=== PATIENT | male | born 1945 | race Caucasian/White ===

== ENCOUNTER 2016-09-09 13:50 | Inpatient (IN) ==
[2016-09-09] MEDS ORDERED: 0.9 % Sodium Chloride 1,000 ML IVC ONE (14:17)
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
[2016-09-09 14:48] LABS: Basophils # 0.1 K/mcL (0.0-0.2); Basophils % 0.5 %; Immature Granulocytes % 0.3 % (0-4); Lymphocytes # 1.4 K/mcL (0.6-4.6); Lymphocytes % 12.4 %; Mean Corpuscular HGB Conc 30.7 g/dL (31.6-35.5); Mean Corpuscular Hemoglobin 30.6 pg (28.0-33.3); Mean Corpuscular Volume 99.6 fL (83.0-100.0); Mean Platelet Volume 11.4 fL (9.4-12.4); Monocytes # 0.6 K/mcL (0.0-1.3); Monocytes % 5.8 %; Platelet Count 209 K/mcL (140-400); Red Blood Count 5.56 M/mcL (4.19-5.50); Red Cell Distribution Width 12.7 % (11.5-14.5)
[2016-09-09 14:52] LABS: Hematocrit 55.4 % (37.5-50.1)
[2016-09-09 14:58] LABS: BUN/Creatinine Ratio 32 (6-26); Blood Urea Nitrogen 86 mg/dL (8-26); Calcium 10.4 mg/dL (8.6-10.8); Carbon Dioxide 27 mEq/L (19-29); Chloride 117 mEq/L (98-109); Osmolality,Calculated 394 (280-300); eGFR For African Americans 28 (> 60); eGFR For Non-African Americans 23 (> 60)
[2016-09-09 15:08] LABS: Sodium 164 mEq/L (136-145)
[2016-09-09 15:09] LABS: Glucose 630 mg/dL (70-99)
[2016-09-09 15:32] LABS: Beta-Hydroxybutyric Acid > 2.00 mmol/L (0.02-0.27)
[2016-09-09 16:17] LABS: ABG Base Excess 0.4 mEq/L (-2.0 to 3.0); ABG Glucose 479 mg/dL (60-95); ABG HCO3 27.8 mEQ/L (21-27); ABG Hematocrit 53 % (35-51); ABG Ionized Calcium 1.23 mmol/L (1.15-1.35); ABG Oxygen Saturation 98 % (95-98); ABG PCO2 54 mmHg (35-45); ABG PH 7.32 pH Units (7.32-7.45); ABG PO2 122 mmHg (85-104); ABG TCO2 29.5 mEq/L (20-26)
[2016-09-09 16:23] LABS: Blood Gas Liter Flow 30 L/MIN
[2016-09-09] MEDS ORDERED: Aspirin 325 MG TABLET PO ONE (16:30)
[2016-09-09] MEDS ORDERED: *HR* Dextrose 50 % in Water (Syg) 50 ML SYRINGE IVP PRN ×2 (16:46→23:41)
[2016-09-09] MEDS ORDERED: Insulin Human Regular 100 UNIT in 0.9 % Sodium Chloride 100 ML IVC SCH (17:00)
[2016-09-09] MEDS ORDERED: Naloxone 0.4 MG/ML INJ IVP PRN (20:58)
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
[2016-09-09] MEDS ORDERED: Dextrose Gel 15 GM PO PRN ×2 (21:28)
[2016-09-09] MEDS ORDERED: D5% in Water 1,000 ML IVC PRN (21:28)
[2016-09-09] MEDS ORDERED: Insulin LISPRO 300 UNITS/3 ML VIAL SQ ONE (21:35)
[2016-09-09 21:43] LABS: VBG HCO3 34.9 mEq/L (21-27); VBG PH 7.38 pH Units (7.32-7.42)
[2016-09-09 21:56] LABS: Alanine Aminotransferase 10 Units/L (0-55); Albumin 3.9 g/dL (3.5-5.0); Albumin/Globulin Ratio 0.9 (1.1-2.2); Alkaline Phosphatase 112 Units/L (38-126); Aspartate Amino Transferase 10 Units/L (5-34); Bilirubin,Direct 0.2 mg/dL (0.0-0.5); Bilirubin,Indirect 0.3 mg/dL (0.0-1.2); Bilirubin,Total 0.5 mg/dL (0.2-1.2); Calcium 10.5 mg/dL (8.6-10.8); Globulin 4.4 g/dL (2.4-3.5); Magnesium 2.8 mg/dL (1.6-2.6); Phosphorous 2.1 mg/dL (2.3-4.7); Total Protein 8.3 g/dL (6.0-8.3)
[2016-09-09 21:57] LABS: Chol/HDL Ratio 10.1 (0-4.9); Ethanol < 10 mg/dL (0-10)
[2016-09-09 22:05] LABS: Potassium 3.2 mEq/L (3.5-4.5)
[2016-09-09 22:18] LABS: Thyroid Stimulating Hormone 0.187 mcIU/mL (0.350-4.840)
[2016-09-09] MEDS: Insulin LISPRO 300 UNITS/3 ML VIAL SQ PRN ×2 (22:26→23:27)
[2016-09-09 23:32] LABS: Triiodothyronine (T3) Free 1.65 pg/mL (1.71-3.71); Triiodothyronine (T3) Total 0.51 ng/mL (0.58-1.59)
[2016-09-09 23:32] LABS: Bilirubin,Urine Moderate (Negative); Blood,Urine Negative (Negative); Clarity,Urine Cloudy (Clear); Color,Urine Yellow (Yellow); Glucose,Urine (UA) >=1000 mg/dL (Normal); Ketones,Urine 15 mg/dL (Negative); Leukocyte Esterase,Urine Negative (Negative); Nitrite,Urine Negative (Negative); Protein,Urine 30 mg/dL (Neg-Trace); Specific Gravity,Urine > 1.030 (1.010-1.025); Urobilinogen,Urine Normal (Normal)
[2016-09-09 23:39] LABS: Bacteria,Urine None Seen per hpf (None-Few); RBC,Urine 0-3 per hpf (0-3); Squamous Epithelial Cell,Urine Many per lpf (None-Few); WBC,Urine 0-3 per hpf (0-3)
[2016-09-09] MEDS ORDERED: Magnesium Sulfate 2 GM in D5% in Water 100 ML IVPB PRN (23:41)
[2016-09-09] MEDS ORDERED: Acetaminophen 325 MG TABLET PO PRN (23:41)
[2016-09-09] MEDS ORDERED: Potassium Phosphate 44 MEQ in 0.9 % Sodium Chloride 250 ML IVPB PRN (23:41)
[2016-09-09] MEDS ORDERED: Insulin LISPRO 300 UNITS/3 ML VIAL SQ PRN (23:41)
[2016-09-09] MEDS ORDERED: *HR* Morphine 2 MG/ML SYRINGE IVP PRN (23:41)
[2016-09-09] MEDS ORDERED: *HR* OxyCODONE Immed Rel 5 MG TABLET PO PRN (23:41)
[2016-09-09] MEDS ORDERED: Calcium Gluconate 1,000 MG in D5% in Water 100 ML IVPB PRN (23:41)
[2016-09-09] MEDS ORDERED: Sodium Phosphate 30 MMOL in D5% in Water 100 ML IVPB PRN (23:41)
[2016-09-09 23:43] LABS: Granular Casts,Urine Few per lpf (None Seen)
[2016-09-09 23:51] LABS: Amphetamine Screen,Urine Negative ng/mL (Cutoff=1000); Barbiturate Screen,Urine Negative ng/mL (Cutoff=200); Benzodiazepines Screen,Urine Negative ng/mL (Cutoff=200); Cannabinoid Screen,Urine Negative ng/mL (Cutoff = 50); Cocaine Screen,Urine Negative ng/mL (Cutoff= 300); Opiate Screen,Urine Negative ng/mL (Cutoff=300); Phencyclidine Screen,Urine Negative ng/mL (Cutoff=25)
[2016-09-10 01:08] LABS: Basophils # 0.1 K/mcL (0.0-0.2); Basophils % 0.4 %; Eosinophils % 0.3 %; Hematocrit 51.9 % (37.5-50.1); Hemoglobin 16.6 g/dL (12.9-16.9); Immature Granulocytes % 0.4 % (0-4); Lymphocytes # 2.1 K/mcL (0.6-4.6); Mean Corpuscular Hemoglobin 31.4 pg (28.0-33.3); Mean Corpuscular Volume 98.1 fL (83.0-100.0); Mean Platelet Volume 11.1 fL (9.4-12.4); Monocytes # 0.9 K/mcL (0.0-1.3); Monocytes % 6.8 %; Neutrophils # 10.1 K/mcL (1.6-8.9); Platelet Count 202 K/mcL (140-400); Red Blood Count 5.29 M/mcL (4.19-5.50); Segmented Neutrophils % 76.1 %
[2016-09-10 01:21] LABS: Calcium 10.3 mg/dL (8.6-10.8); Potassium 3.7 mEq/L (3.5-4.5)
[2016-09-10] MEDS ORDERED: D5% in 0.45% NACL 1,000 ML IVC SCH ×2 (02:30→11:11)
[2016-09-10] MEDS ORDERED: Ipratropium/Albuterol Neb 3 ML IH PRN (02:40)
[2016-09-10 03:45] LABS: Protein/Creatinine Ratio,Urine 0.21 mg/mg (0-0.20)
[2016-09-10 04:00] LABS: Basophils % 0.2 %; Hematocrit 50.3 % (37.5-50.1); Hemoglobin 15.8 g/dL (12.9-16.9); Immature Granulocytes % 0.8 % (0-4); Lymphocytes # 1.9 K/mcL (0.6-4.6); Mean Corpuscular HGB Conc 31.4 g/dL (31.6-35.5); Mean Corpuscular Hemoglobin 30.8 pg (28.0-33.3); Mean Corpuscular Volume 98.1 fL (83.0-100.0); Mean Platelet Volume 11.2 fL (9.4-12.4); Monocytes # 0.9 K/mcL (0.0-1.3); Monocytes % 7.6 %; Neutrophils # 9.1 K/mcL (1.6-8.9); Platelet Count 176 K/mcL (140-400); Red Blood Count 5.13 M/mcL (4.19-5.50); Red Cell Distribution Width 12.8 % (11.5-14.5); Segmented Neutrophils % 75.4 %
[2016-09-10 04:04] LABS: VBG HCO3 34.1 mEq/L (21-27); VBG PH 7.4 pH Units (7.32-7.42)
[2016-09-10 04:06] LABS: INR 1.1; Prothrombin Time 12.1 Seconds (9.4-12.1)
[2016-09-10 04:09] LABS: Activated Partial Thrombo Time 24.7 Seconds (26.0-36.0)
[2016-09-10 04:14] LABS: Magnesium 2.7 mg/dL (1.6-2.6); Phosphorous 2.8 mg/dL (2.3-4.7)
[2016-09-10 04:16] LABS: Albumin 3.5 g/dL (3.5-5.0); Bilirubin,Total 0.8 mg/dL (0.2-1.2); Calcium 9.8 mg/dL (8.6-10.8); Calcium 9.9 mg/dL (8.6-10.8); Chol/HDL Ratio 9.1 (0-4.9); Globulin 3.6 g/dL (2.4-3.5); Potassium 3.9 mEq/L (3.5-4.5); Total Protein 7.1 g/dL (6.0-8.3)
[2016-09-10] MEDS: *HR* Heparin 5,000 UNIT/ML VIAL SQ SCH ×2 (05:22→17:37)
--- NOTE | 2016-09-10 06:45 | Electrocardiograph Report ---
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
[2016-09-10] MEDS ORDERED: Insulin LISPRO 300 UNITS/3 ML VIAL SQ SCH ×3 (07:30→21:00)
[2016-09-10 09:17] LABS: VBG HCO3 27.9 mEq/L (21-27); VBG PH 7.4 pH Units (7.32-7.42)
[2016-09-10] MEDS: D5% in Water 1,000 ML IVC SCH ×2 (09:20→20:18)
--- NOTE | 2016-09-10 09:26 | Pulmonology Consult Note ---
<ValenteTim W - Last Filed: 09/10/16 15:12> Date of Encounter: 09/10/16 Medications and Allergies Unable To Obtain [Unable to Obtain] 09/09/16 [History] Allergies No Known Allergies Allergy (Verified 09/09/16 13:56) All Systems: A 10-system review of systems was performed and is negative for pertinent findings except as documented above in the HPI. Physical Examination Vital Signs: Vital Signs, Last 4 Hours Temp Pulse Resp BP Pulse Ox 09/10/16 13:00 98 10 126/85 09/10/16 12:18 100 09/10/16 12:16 99 12 153/92 94 09/10/16 11:45 98.5 F 09/10/16 11:23 96 12 143/93 91 Results - Laboratory Findings CBC and BMP: 09/10/16 03:46 09/10/16 13:06 ABG ABG pH 7.32 pH Units (7.32-7.45) 09/09/16 15:58 ABG pCO2 54 mmHg (35-45) H 09/09/16 15:58 ABG pO2 122 mmHg (85-104) H 09/09/16 15:58 ABG O2 Saturation 98 % (95-98) 09/09/16 15:58 PT/INR, D-dimer PT 12.1 Seconds (9.4-12.1) 09/10/16 03:46 Abnormal lab findings: Abnormal lab results WBC 12.0 K/mcL (4.3-11.1) H 09/10/16 03:46 Hct 50.3 % (37.5-50.1) H 09/10/16 03:46 MCHC 31.4 g/dL (31.6-35.5) L 09/10/16 03:46 Neutrophils # 9.1 K/mcL (1.6-8.9) H 09/10/16 03:46 ESR 44 mm/hr (0-10) H 09/10/16 03:46 APTT 24.7 Seconds (26.0-36.0) L 09/10/16 03:46 ABG pCO2 54 mmHg (35-45) H 09/09/16 15:58 ABG pO2 122 mmHg (85-104) H 09/09/16 15:58 ABG HCO3 27.8 mEQ/L (21-27) H 09/09/16 15:58 ABG Total CO2 29.5 mEq/L (20-26) H 09/09/16 15:58 ABG Hematocrit 53 % (35-51) H 09/09/16 15:58 VBG pH 7.48 pH Units (7.32-7.42) H 09/10/16 15:00 VBG pCO2 40 mmHg (41-51) L 09/10/16 15:00 VBG pO2 198 mmHg (25-40) H 09/10/16 15:00 VBG HCO3 29.8 mEq/L (21-27) H 09/10/16 15:00 Sodium 162 mEq/L (135-148) H* 09/09/16 15:58 Glucose 479 mg/dL (60-95) H 09/09/16 15:58 Sodium 158 mEq/L (136-145) H 09/10/16 13:06 Chloride 122 mEq/L (98-109) H 09/10/16 13:06 BUN 68 mg/dL (8-26) H 09/10/16 13:06 Creatinine 1.98 mg/dL (0.72-1.25) H 09/10/16 13:06 Est GFR ( Amer) 41 (> 60) L 09/10/16 13:06 Est GFR (Non-Af Amer) 34 (> 60) L 09/10/16 13:06 BUN/Creatinine Ratio 34 (6-26) H 09/10/16 13:06 Glucose 368 mg/dL (70-99) H 09/10/16 13:06 POC Glucose 378 (58-89) H 09/10/16 12:25 Hemoglobin A1c 8.0 % (-5.6) H 09/09/16 21:29 Serum Osmolality 374 mOsm/kg (280-300) H 09/10/16 03:46 Calculated Osmolality 361 (280-300) H 09/10/16 13:06 Troponin I 0.08 ng/mL (0-0.03) H* 09/10/16 08:55 C-Reactive Protein 35 mg/L (Less than 5) H 09/10/16 03:46 Globulin 3.6 g/dL (2.4-3.5) H 09/10/16 03:46 Albumin/Globulin Ratio 1.0 (1.1-2.2) L 09/10/16 03:46 Triglycerides 212 mg/dL (< 150) H 09/10/16 03:46 Cholesterol 255 mg/dL (< 200) H 09/10/16 03:46 LDL Cholesterol, Calc 185 mg/dL (0-99) H 09/10/16 03:46 VLDL Cholesterol, Calc 42 mg/dL (< 31) H 09/10/16 03:46 HDL Cholesterol 28 mg/dL (40-59) L 09/10/16 03:46 Cholesterol/HDL Ratio 9.1 (0-4.9) H 09/10/16 03:46 Beta-Hydroxybutyric Acd > 2.00 mmol/L (0.02-0.27) H 09/09/16 14:39 TSH 0.253 mcIU/mL (0.350-4.840) L 09/10/16 00:53 Free T3 1.65 pg/mL (1.71-3.71) L 09/09/16 21:29 Total T3 0.51 ng/mL (0.58-1.59) L 09/09/16 21:29 Urine Clarity Cloudy (Clear) A 09/09/16 23:15 Ur Specific [place] > 1.030 (1.010-1.025) H 09/09/16 23:15 Urine Protein 30 mg/dL (Neg-Trace) H 09/09/16 23:15 Urine Glucose (UA) >=1000 mg/dL (Normal) H 09/09/16 23:15 Urine Ketones 15 mg/dL (Negative) H 09/09/16 23:15 Urine Bilirubin Moderate (Negative) H 09/09/16 23:15 Ur Squamous Epith Cells Many per lpf (None-Few) H 09/09/16 23:15 Granular Casts Few per lpf (None Seen) H 09/09/16 23:15 Microalb/Creat Ratio 57 (0-30) H 09/10/16 03:29 Protein/Creatinin Ratio 0.21 mg/mg (0-0.20) H 09/10/16 03:29 Urine Total Protein 35 mg/dL (1-14) H 09/10/16 03:29 - Clinical Findings Intake & Output: Intake & Output 09/09/16 09/10/16 09/10/16 23:59 07:59 15:59 Intake Total 20.8 / 1020.8 654 / 654 120 / 120 Output Total 200 / 200 400 / 400 Balance 0.8 / 1000.8 454 / 454 -280 / -280 Weight 59.602 kg 65.119 kg Consult Discharge Plan - Plan Referrals: NO,PCP [Primary Care Provider] - - Attending Attestation I examined this patient and my medical decision-making was reviewed with the HUMANITIES TEACHER/PA/Advanced Practice Nurse/Resident Physician. I agree with the documented findings, disposition and treatment plan as described except to the extent set forth below. Impression: 1. HONK 2. Hypernatremia 3. AMS. 4. Troponin Elevation Plan: 1. Insulin drip turned off hyperglycemia has corrected patient has received intravascular volume resuscitation urine output remains appropriate 2. Stop crystalloid infusion switch to D5W at 50 mL an hour check sodium every 4 hours goal correction approx 10mEQ in 24 hours. Encourage by mouth intake of free water. 3. s/t 1 & 2 slowly improving today able to follow commands and take diet 4. Secondary to acute stress does have regional wall motion abnormalities but no reduction in ejection fraction we will consult cardiology nonurgent basis for further evaluation troponin has peaked at 0.10 and now trending down and denies any chest pain and remains hemodynamically stable Stable for transfer from ICU to SDU for ongoing care. <AlysonHari Peacock - Last Filed: 09/10/16 16:20> Date of Encounter: 09/10/16 Time of Encounter: 08:40 Assessment and Plan (1) Hypernatremia Current Visit: Yes Status: Acute 164>166>166>166>166>162 The patient is not currently complaining of any symptoms. Will continue to follow and monitor closely. Nephrology consulted. (2) URIEL (acute kidney injury) Current Visit: Yes Status: Acute Unknown baseline function. Creatinine improving. Nephrology consulted. (3) Altered mental status Current Visit: Yes Status: Acute Patient has a history of dementia. Unknown what his baseline is. Per nurse report he was able to answer that he was at a medical center. Will continue to follow. CT of the head was negative for acute abnormality. Qualifiers: Altered mental status type: unspecified Qualified Code(s): R41.82 - Altered mental status, unspecified (4) Elevated troponin Current Visit: Yes Status: Acute 0.06> 0.07> 0.10> 0.08 trending down. Demand ischemia with dehydration and URIEL vs. CKD. Will continue to follow. Echocardiogram ordered. (5) Diabetes Current Visit: Yes Status: Chronic Hyperglycemia. BS this mornings were 110>270>367 ADA diet. Correction schedule has been changed to high dose correction SSI. D5 in half normal saline rate changed from 150mls/hr to 50mls/hr. Qualifiers: Diabetes mellitus type: type 2 Diabetes mellitus complication status: with unspecified complications Diabetes mellitus intermediate insulin use: unspecified joint terminal attack controller insulin use status Qualified Code(s): E11.8 - Type 2 diabetes mellitus with unspecified complications (6) COPD (chronic obstructive pulmonary disease) Current Visit: Yes Status: Chronic Not in acute exacerbation. CTA demonstrated emphysema without acute abnormalities. Currently saturating in 90s on room air. Qualifiers: COPD type: emphysema Emphysema type: centrilobular Qualified Code(s): J43.2 - Centrilobular emphysema (7) DVT prophylaxis Current Visit: Yes Status: Acute Heparin SQ The patient is on a diet and has no need for GI prophylaxis at this time. History of Present Illness Consult date: 09/09/16 Requesting physician: Ashok Washburn Reason for consult: other (severe hypernatremia and hyperglycemia, needs critical care management) Chief complaint: AMS History of present illness: This is a 71 year old male with uncertain medical history. He is a poor historian with underlying dementia and he has no family or friends present with him to clarify questions. He is able to state he is a diabetic, and it is assumed that he has CAD with previous NC due to pacemaker being present and median sternotomy scar present. His baseline mental function is unknown. He is able to state his whole name. When he is asked if he knows where he is he will answer "yes" but will not answer with a specific location. He does not know the date either. He states that he is not in any pain and currently feels fine. The patient is currently staying in a skilled nursing house. The patient initially had Na of 164 with glucose of 630 and Cr of 2.72. He was started on an insulin drip and transferred to the ICU. Currently his glucose is 110 and Cr is 2.01, but his Na remains elevated at 166. He continues to be on D5 1/2 normal saline at 150mls/hr. He was transitioned to a diabetic diet with low dose correction scale insulin. Past Med Surg Social Fam HX - Past Medical History Medical history: arthritis, coronary artery disease, dementia, diabetes, myocardial infarction, other Psychiatric history: other - Past Surgical History Surgical History: coronary bypass (CABG), AICD, pacemaker - Social History Smoking Status: Unknown if ever smoked Alcohol use: unknown Drug use: unknown ROS unobtainable: due to mental status All Systems: A 10-system review of systems was performed and is negative for pertinent findings except as documented above in the HPI. Physical Examination Vital Signs: Vital Signs, Last 4 Hours Temp Pulse Resp BP Pulse Ox 09/10/16 08:32 100 9 125/85 94 09/10/16 08:23 101 09/10/16 08:02 98.2 F 09/10/16 07:30 97 138/84 09/10/16 06:13 101 18 144/98 91 09/10/16 05:46 98 16 123/79 92 General appearance: no acute distress, alert, other (Only oriented to person) Eyes: nonicteric ENT: oropharynx moist Neck: supple Effort: normal Inspection: normal Auscultation: bilateral: diminished breath sounds Cardiovascular: regular rate and rhythm, murmur noted (+3 systolic murmur), other (Pacemaker in place with median sternotomy scar over the center of the chest) Gastrointestinal: normoactive bowel sounds, soft, non-tender, non-distended Integumentary: normal Extremities: no cyanosis Musculoskeletal: no deformities non-focal exam, other (delayed answering of questions, but appropriate) mood appropriate Results - Laboratory Findings CBC and BMP: 09/10/16 03:46 09/10/16 13:06 ABG ABG pH 7.32 pH Units (7.32-7.45) 09/09/16 15:58 ABG pCO2 54 mmHg (35-45) H 09/09/16 15:58 ABG pO2 122 mmHg (85-104) H 09/09/16 15:58 ABG O2 Saturation 98 % (95-98) 09/09/16 15:58 PT/INR, D-dimer PT 12.1 Seconds (9.4-12.1) 09/10/16 03:46 Abnormal lab findings: Abnormal lab results WBC 12.0 K/mcL (4.3-11.1) H 09/10/16 03:46 Hct 50.3 % (37.5-50.1) H 09/10/16 03:46 MCHC 31.4 g/dL (31.6-35.5) L 09/10/16 03:46 Neutrophils # 9.1 K/mcL (1.6-8.9) H 09/10/16 03:46 ESR 44 mm/hr (0-10) H 09/10/16 03:46 APTT 24.7 Seconds (26.0-36.0) L 09/10/16 03:46 ABG pCO2 54 mmHg (35-45) H 09/09/16 15:58 ABG pO2 122 mmHg (85-104) H 09/09/16 15:58 ABG HCO3 27.8 mEQ/L (21-27) H 09/09/16 15:58 ABG Total CO2 29.5 mEq/L (20-26) H 09/09/16 15:58 ABG Hematocrit 53 % (35-51) H 09/09/16 15:58 VBG pCO2 55 mmHg (41-51) H 09/10/16 03:46 VBG pO2 78 mmHg (25-40) H 09/10/16 03:46 VBG HCO3 34.1 mEq/L (21-27) H 09/10/16 03:46 Sodium 162 mEq/L (135-148) H* 09/09/16 15:58 Glucose 479 mg/dL (60-95) H 09/09/16 15:58 Sodium 166 mEq/L (136-145) H* 09/10/16 03:46 Chloride 126 mEq/L (98-109) H 09/10/16 03:46 BUN 78 mg/dL (8-26) H 09/10/16 03:46 Creatinine 1.95 mg/dL (0.72-1.25) H 09/10/16 03:46 Est GFR ( Amer) 41 (> 60) L 09/10/16 03:46 Est GFR (Non-Af Amer) 34 (> 60) L 09/10/16 03:46 BUN/Creatinine Ratio 40 (6-26) H 09/10/16 03:46 Glucose 108 mg/dL (70-99) H 09/10/16 03:46 POC Glucose 270 (58-89) H 09/10/16 07:24 Hemoglobin A1c 8.0 % (-5.6) H 09/09/16 21:29 Serum Osmolality 374 mOsm/kg (280-300) H 09/10/16 03:46 Calculated Osmolality 366 (280-300) H 09/10/16 03:46 Magnesium 2.7 mg/dL (1.6-2.6) H 09/10/16 03:46 Troponin I 0.10 ng/mL (0-0.03) H* 09/10/16 03:46 C-Reactive Protein 35 mg/L (Less than 5) H 09/10/16 03:46 Globulin 3.6 g/dL (2.4-3.5) H 09/10/16 03:46 Albumin/Globulin Ratio 1.0 (1.1-2.2) L 09/10/16 03:46 Triglycerides 212 mg/dL (< 150) H 09/10/16 03:46 Cholesterol 255 mg/dL (< 200) H 09/10/16 03:46 LDL Cholesterol, Calc 185 mg/dL (0-99) H 09/10/16 03:46 VLDL Cholesterol, Calc 42 mg/dL (< 31) H 09/10/16 03:46 HDL Cholesterol 28 mg/dL (40-59) L 09/10/16 03:46 Cholesterol/HDL Ratio 9.1 (0-4.9) H 09/10/16 03:46 Beta-Hydroxybutyric Acd > 2.00 mmol/L (0.02-0.27) H 09/09/16 14:39 TSH 0.253 mcIU/mL (0.350-4.840) L 09/10/16 00:53 Free T3 1.65 pg/mL (1.71-3.71) L 09/09/16 21:29 Total T3 0.51 ng/mL (0.58-1.59) L 09/09/16 21:29 Urine Clarity Cloudy (Clear) A 09/09/16 23:15 Ur Specific [place] > 1.030 (1.010-1.025) H 09/09/16 23:15 Urine Protein 30 mg/dL (Neg-Trace) H 09/09/16 23:15 Urine Glucose (UA) >=1000 mg/dL (Normal) H 09/09/16 23:15 Urine Ketones 15 mg/dL (Negative) H 09/09/16 23:15 Urine Bilirubin Moderate (Negative) H 09/09/16 23:15 Ur Squamous Epith Cells Many per lpf (None-Few) H 09/09/16 23:15 Granular Casts Few per lpf (None Seen) H 09/09/16 23:15 Microalb/Creat Ratio 57 (0-30) H 09/10/16 03:29 Protein/Creatinin Ratio 0.21 mg/mg (0-0.20) H 09/10/16 03:29 Urine Total Protein 35 mg/dL (1-14) H 09/10/16 03:29 - Clinical Findings Intake & Output: Intake & Output 09/09/16 09/10/16 09/10/16 23:59 07:59 15:59 Intake Total 20.8 / 1020.8 654 / 654 Output Total 20 / 20 200 / 200 200 / 200 Balance 0.8 / 1000.8 454 / 454 -200 / -200 Weight 59.602 kg 65.119 kg
[2016-09-10 09:27] LABS: Magnesium 2.3 mg/dL (1.6-2.6); Phosphorous 3.6 mg/dL (2.3-4.7); Potassium 4.3 mEq/L (3.5-4.5)
--- NOTE | 2016-09-10 09:37 | ECHO - Doppler Report ---
Echocardiogram Name: Warren Carver Date of Study: 09/10/2016 Date: 1945 Ht: 72.0 in Medical Record#: [id number] Age: 71 Wt: 143.0 lb Gender: Male BSA: 1.85 Order #: [id number] Location: [facility] Room #: ICU12 Reading Physician: Rashel Gamez MD, [facility] [employer]: Dilshad Sue RN Ordering Physician: Ashok Washburn DO Primary Physician: None Indications: Elevated Troponin Impressions: LVEF 55-60%. There are regional wall motion abnormalities, see diagram below. Mild concentric left ventricular hypertrophy. Mild left ventricular diastolic dysfunction. Normal right ventricular size and function. A device lead was visualized in the right atrium and right ventricle. No significant valvular dysfunction. Unable to estimate RVSP due to lack of TR jet. Left Ventricular Wall Motion: Rest Echo Findings The basal inferior septal and basal inferior lateral martinez were hypokinetic. The basal inferior wall was akinetic. All other wall segments showed normal motion. Findings: Study Quality * Suboptimal echo windows. ECG Findings * Normal sinus rhythm. Left Ventricle * LVEF 55-60%. There are regional wall motion abnormalities, see diagram below. * Mild concentric left ventricular hypertrophy. * Mild left ventricular diastolic dysfunction. Right Ventricle * Normal right ventricular size and function. Device lead * A device lead was visualized in the right atrium and right ventricle. Left Atrium * Normal left atrial size. Right Atrium * Normal right atrial size. Aorta * Normally sized aortic root. Pericardium * There is no pericardial effusion present. IVC * The IVC is not well evaluated. Aortic Valve * Aortic valve not well visualized. Appears mildly sclerotic. * No aortic stenosis. * No aortic regurgitation. Mitral Valve * Normal mitral valve structure. * No mitral stenosis. * Trace mitral regurgitation. Tricuspid Valve * Tricuspid valve not well visualized. * No tricuspid stenosis. * Trace tricuspid regurgitation. * Unable to estimate RVSP due to lack of TR jet. Pulmonic Valve * Pulmonic valve not well visualized. * No pulmonic stenosis. * No pulmonic regurgitation. History History of CAD/PTCA Coronary Artery Bypass Graft Measurements: BP: 144/ 98 2D Normal Values RVIDd: 3.70 cm IVSd: 1.20 cm 0.6 - 1.0 cm LVIDd: 3.90 cm 3.7 - 5.6 cm LVPWd: 1.20 cm 0.6 - 1.1 cm LVIDs: 3.00 cm 1.5 - 3.6 cm AO: 3.60 cm < 4.0 cm %FS: 23.10 cm >25 % LA volume: 45 Mitral Valve Peak E:.59 m/sec Peak A:.89 m/sec E/A Ratio:0.7 Updated by Rashel Gamez MD, [facility] on 09/10/2016 9:30:25 AM electronically signed on 09/10/2016 9:30:49 AM with status of Final Wall Motion Travis: 1=Normal, 2=Hypokinesis, 3=Akinesis, 4=Dyskinesis, 5=Aneurysmal, 6=Hyperkinetic, X=Not Visualized (Blank)=Missing
--- NOTE | 2016-09-10 10:34 | Nephrology Consult Note ---
Date of Encounter: 09/10/16 Time of Encounter: 10:15 Assessment and Plan (1) Hypernatremia Current Visit: Yes Status: Acute Patient presents to the hospital with altered mental status sodium level of 164. Repeat sodiums were 166. Patient hypernatremia likely caused by dehydration from HHS and dehydration. There has been slow improvement patient hypernatremia seen with continued fluids with D5 and half-normal saline. Current sodium is 158. Patient's serum osmotically and urine osmolality are both elevated, indicating proper response by patient kidneys to dehydration and unlikely SIADH. Patient free water deficit of 5.5 to 6 L. Recommend continuous IV fluid repletion with goal improvement in patient's sodium no more than 10 per day Recommend regular checks of patient's sodium, every 6 hours until sodium in less critical range Agree with reducing rate of fluid repletion (2) HHNC (hyperglycemic hyperosmolar nonketotic coma) Current Visit: Yes Status: Acute Patient presented with elevated blood glucose, altered mental status, and elevated serum of quality without acidosis. Patient was initially placed on insulin drip and is receiving fluids for his dehydration. He was transitioned off insulin drip this morning, but has continued have elevated blood sugars due largely to continue fluid repletion with D5 in half-normal saline. Although patient alert is alert and oriented 1, with history of dementia is unclear what his baseline is. Continue treatment for hypernatremia and dehydration as above Continue close monitoring of patient blood sugar Continue management per primary team (3) Renal insufficiency Current Visit: Yes Status: Acute Nonoliguric acute kidney injury with unknown baseline renal function, URIEL or URIEL on CKD?. Patient presents with elevated serum creatinine of 2.72 with estimated GFR of 23. There are no records available as the patient baseline renal function. He appears to be dehydrated and FeNa of 0.2% suggests prerenal cause of his acute kidney injury. Improvement in the patient renal function seen continued fluid repletion. Continue fluid repletion as above We will trend renal function with every 6 hours chemistry Avoid nephrotoxins if possible Expect improvement in patient renal function as improvement of fluid status seen (4) Dehydration Current Visit: Yes Status: Acute Patient unreliable historian, likely has some degree of decreased by mouth prior to/contributory to current status. Elevated serum osmolality, elevated urine osmolality, hypernatremia, hyper glycemia are all evidence of/ contributing factors to patient. Continue continue IV fluid repletion as above (5) Acute encephalopathy Current Visit: Yes Status: Acute Patient encephalopathy likely due to current dehydration, decreased intravascular volume, hypernatremia, hyperosmolar state, and hyperglycemia. Recommendations above Continue management per primary team History of Present Illness - Reason for Consult Consult date: 09/10/16 Acute Kidney Injury, hypernatremia Requesting physician: Ashok Washburn - Chief Complaint Altered mental status - History of Present Illness Mr. Carver is a 71 year old gentleman with past medical history of CAD (with prior CABG), prior pacemaker placed (for unknown reason), diabetes, and dementia (unknown baseline) was brought to [facility] because of altered mental status at his place of residence. Is unclear at the moment what preceded his current encephalopathy, there is no prior documentation to patient medical history. He does live at a long term, being on parole currently, and presumably he was found to be altered and EMS was called. At presentation he was found to have several metabolic derangements, including: Hypernatremia, hyperglycemia, elevated serum osmolality, beta hydroxybutyrate greater than 2, high urine osmolality, increased urine specific gravity, glucosuria, and FeNa less than 0.2%. All imaging performed including head and chest CT, chest x-ray, and electrocardiogram were negative for acute processes. He has been mildly tachycardic with elevated, but stable, troponin. Past Med Surg Social Fam HX - Past Medical History Medical history: arthritis, coronary artery disease, dementia, diabetes, myocardial infarction, other Psychiatric history: other - Past Surgical History Surgical History: coronary bypass (CABG), AICD, pacemaker - Social History Smoking Status: Unknown if ever smoked Alcohol use: unknown Drug use: unknown Medications and Allergies Unable To Obtain [Unable to Obtain] 09/09/16 [History] Allergies No Known Allergies Allergy (Verified 09/09/16 13:56) Review of Systems ROS unobtainable: due to mental status (Patient alert, but alert and oriented 1 , and though he answers questions appropriately is difficult to say whether these are accurate answers) Constitutional: no anorexia, no chills, no fatigue, no fever(s), no headache(s) , no weakness Nose, mouth and throat: no dry mouth, no sore throat Cardiovascular: no chest pain, no palpitations Respiratory: no cough, no dyspnea Gastrointestinal: no abdominal pain, no change in bowel habits, no constipation , no diarrhea, no nausea, no vomiting Genitourinary Male: no dysuria Neurological: no dizziness Endocrine: no fatigue, no palpitations, no polydipsia, no polyuria Exam - Vital Signs Vital signs: Initial Vital Signs Temp Pulse Resp BP Pulse Ox 98.3 F 110 18 105/69 92 09/09/16 13:51 09/09/16 13:51 09/09/16 13:51 09/09/16 13:51 09/09/16 13:51 Vital Signs - Last 8 Hours Temp Pulse Resp BP Pulse Ox 09/10/16 09:27 99 11 130/82 91 09/10/16 08:32 100 9 125/85 94 09/10/16 08:23 101 09/10/16 08:02 98.2 F 09/10/16 07:30 97 138/84 09/10/16 06:13 101 18 144/98 91 09/10/16 05:46 98 16 123/79 92 09/10/16 04:13 94 14 109/75 92 09/10/16 03:45 99 16 108/82 92 09/10/16 03:06 97.8 F Intake and Output 09/09/16 09/10/16 09/10/16 23:59 07:59 15:59 Intake Total 20.8 / 1020.8 654 / 654 Output Total 20 / 20 200 / 200 200 / 200 Balance 0.8 / 1000.8 454 / 454 -200 / -200 Intake: IV Fluids 20.8 / 20.8 654 / 654 0.45% Sodium Chloride 654 / 654 1000 Ml 1000 Ml 1,000 ML @ 125 mls/hr IVC .Q8H [facility] Rx#:[id number] HumuLIN R 100 UNIT In 0. 20.8 / 20.8 9 % Sodium Chloride 100 ML @ 0.1 UNIT/KG/HR 5.72 mls/hr IVC CONT [facility] Rx#: [id number] Oral 0 / 0 Output: Urine 20 / 20 Catheter 200 / 200 200 / 200 Other: Weight 59.602 kg 65.119 kg Blood Glucose* 180 94 270 Patient Weight 09/10/16 23:59 Weight 65.119 kg - General Appearance Exam: General: Cooperative, pleasant, no acute distress, alert and oriented 1, answers questions appropriately, cachectic Head/throat: Normocephalic, atraumatic, dry mucosa Eye: Conjunctiva pink, sclera anicteric, PERRL Neck: Supple, trachea midline Respiratory: No accessory muscle usage, clear to auscultation bilaterally, no wheezes/rhonchi/rales appreciated Cardiovascular: Tachycardia, S1 and S2 present, no murmurs/rubs/gallops/clicks appreciated GI/abdominal: Nondistended, nontender, soft, normal bowel sounds, no peritoneal signs Extremities: No calf tenderness, noncyanotic, no pedal edema appreciated, warm, lower extremity pulses palpable and symmetrical Neurological: Alert and oriented 1, no facial droop, no focal deficits Skin: Dry, intact, normal color Results - Lab Results 09/10/16 03:46 09/10/16 13:06 Most recent lab results ABG pH 7.32 pH Units (7.32-7.45) 09/09/16 15:58 ABG pCO2 54 mmHg (35-45) H 09/09/16 15:58 ABG pO2 122 mmHg (85-104) H 09/09/16 15:58 ABG HCO3 27.8 mEQ/L (21-27) H 09/09/16 15:58 ABG O2 Saturation 98 % (95-98) 09/09/16 15:58 Calcium 9.0 mg/dL (8.6-10.8) 09/10/16 08:55 Phosphorus 3.6 mg/dL (2.3-4.7) 09/10/16 08:55 Magnesium 2.3 mg/dL (1.6-2.6) 09/10/16 08:55 Urine Creatinine 169 mg/dL 09/10/16 03:29 Urine Sodium 20.0 mEq/L 09/10/16 03:29 Urine Total Protein 35 mg/dL (1-14) H 09/10/16 03:29 Consult Discharge Plan - Plan Referrals: NO,PCP [Primary Care Provider] -
[2016-09-10] MEDS: Insulin LISPRO 300 UNITS/3 ML VIAL SQ SCH ×2 (11:27→17:38)
[2016-09-10 13:27] LABS: Potassium 3.6 mEq/L (3.5-4.5)
[2016-09-10 15:07] LABS: VBG HCO3 29.8 mEq/L (21-27); VBG PH 7.48 pH Units (7.32-7.42)
[2016-09-10 15:18] LABS: Magnesium 2.5 mg/dL (1.6-2.6); Phosphorous 2.5 mg/dL (2.3-4.7)
[2016-09-10 17:57] LABS: Calcium 9.3 mg/dL (8.6-10.8); Potassium 3.8 mEq/L (3.5-4.5)
[2016-09-11 00:27] LABS: Calcium 9.3 mg/dL (8.6-10.8); Potassium 3.3 mEq/L (3.5-4.5)
[2016-09-11] MEDS: D5% in Water 1,000 ML IVC SCH (02:45)
[2016-09-11 07:53] LABS: Basophils % 0.2 %; Eosinophils # 0.1 K/mcL (0.0-0.6); Eosinophils % 0.8 %; Hematocrit 43.1 % (37.5-50.1); Hemoglobin 13.4 g/dL (12.9-16.9); Immature Granulocytes % 0.4 % (0-4); Immature Platelets 7.6 % (1.1-6.1); Lymphocytes # 1.7 K/mcL (0.6-4.6); Mean Corpuscular HGB Conc 31.1 g/dL (31.6-35.5); Mean Corpuscular Hemoglobin 30.9 pg (28.0-33.3); Mean Corpuscular Volume 99.5 fL (83.0-100.0); Mean Platelet Volume 11.7 fL (9.4-12.4); Monocytes # 0.5 K/mcL (0.0-1.3); Monocytes % 5.3 %; Neutrophils # 6.2 K/mcL (1.6-8.9); Platelet Count 101 K/mcL (140-400); Red Blood Count 4.33 M/mcL (4.19-5.50); Red Cell Distribution Width 12.7 % (11.5-14.5); Segmented Neutrophils % 73.3 %
[2016-09-11 08:05] LABS: Calcium 8.8 mg/dL (8.6-10.8); Potassium 3.8 mEq/L (3.5-4.5)
[2016-09-11 08:19] LABS: Platelet Estimate Slight Decrease (Normal)
--- NOTE | 2016-09-11 09:08 | Pulmonology Progress Note ---
<Hari Shields - Last Filed: 09/11/16 11:11> Date of Encounter: 09/11/16 Time of Encounter: 08:15 Assessment and Plan (1) Hypernatremia Current Visit: Yes Status: Acute Improving to 152 this morning. Continue encourage PO free water. Continue 1/2 normal saline at 50mls/hr. Patient is stable for transfer out of the ICU. Discussed with hospitalist Dr. Nicole for transfer. (2) URIEL (acute kidney injury) Current Visit: Yes Status: Acute Improving. Continue encouraged PO water. Unknown baseline. (3) Altered mental status Current Visit: Yes Status: Acute Patient has a history of dementia. Unknown what his baseline is. Will continue to follow. CT of the head was negative for acute abnormality. Patient remains only oriented to person. Qualifiers: Altered mental status type: unspecified Qualified Code(s): R41.82 - Altered mental status, unspecified (4) Diabetes Current Visit: Yes Status: Chronic On high dose correction scale. Diabetic diet. D5 1/2 normal saline has been switched to 1/2 normal saline at the same rate. Basal insulin has been started with Levemir 10 units BID. 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 He is oriented to person, but not place or time. He believes the year to be 1975. He does not have any complaints at this time. He states he is feeling better. It is uncertain whether he would know if he is improving, but he appears comfortable at this time and has been having improvement of his labs. Objective PUL Vital signs: Last Vital Signs Temp 98.3 F 09/11/16 08:30 Pulse 91 09/11/16 06:00 Resp 14 09/11/16 06:00 BP 119/81 09/11/16 06:00 Pulse Ox 92 09/11/16 06:00 General appearance: no acute distress, alert Eyes: nonicteric ENT: oropharynx moist Neck: supple Effort: normal Auscultation: bilateral: clear Cardiovascular: regular rate and rhythm, murmur noted, other (pacemaker noted) Gastrointestinal: normoactive bowel sounds, soft, non-tender, non-distended Integumentary: normal, other (midline sternotomy scar) Extremities: no cyanosis Musculoskeletal: no deformities non-focal exam, other (Only oriented to person, able to follow commands.) mood appropriate, other (slow to answer questions, but responds appropriately) Results - Laboratory Findings CBC and BMP: 09/11/16 07:46 09/11/16 07:46 ABG ABG pH 7.32 pH Units (7.32-7.45) 09/09/16 15:58 ABG pCO2 54 mmHg (35-45) H 09/09/16 15:58 ABG pO2 122 mmHg (85-104) H 09/09/16 15:58 ABG O2 Saturation 98 % (95-98) 09/09/16 15:58 PT/INR, D-dimer PT 12.1 Seconds (9.4-12.1) 09/10/16 03:46 Abnormal lab findings: Abnormal lab results MCHC 31.1 g/dL (31.6-35.5) L 09/11/16 07:46 Plt Count 101 K/mcL (140-400) L 09/11/16 07:46 Platelet Estimate Slight Decrease (Normal) L 09/11/16 07:46 Immature Plt Fraction 7.6 % (1.1-6.1) H 09/11/16 07:46 ESR 44 mm/hr (0-10) H 09/10/16 03:46 APTT 24.7 Seconds (26.0-36.0) L 09/10/16 03:46 ABG pCO2 54 mmHg (35-45) H 09/09/16 15:58 ABG pO2 122 mmHg (85-104) H 09/09/16 15:58 ABG HCO3 27.8 mEQ/L (21-27) H 09/09/16 15:58 ABG Total CO2 29.5 mEq/L (20-26) H 09/09/16 15:58 ABG Hematocrit 53 % (35-51) H 09/09/16 15:58 VBG pH 7.48 pH Units (7.32-7.42) H 09/10/16 15:00 VBG pCO2 40 mmHg (41-51) L 09/10/16 15:00 VBG pO2 198 mmHg (25-40) H 09/10/16 15:00 VBG HCO3 29.8 mEq/L (21-27) H 09/10/16 15:00 Sodium 162 mEq/L (135-148) H* 09/09/16 15:58 Glucose 479 mg/dL (60-95) H 09/09/16 15:58 Sodium 152 mEq/L (136-145) H 09/11/16 07:46 Chloride 117 mEq/L (98-109) H 09/11/16 07:46 BUN 51 mg/dL (8-26) H 09/11/16 07:46 Creatinine 1.51 mg/dL (0.72-1.25) H 09/11/16 07:46 Est GFR ( Amer) 56 (> 60) L 09/11/16 07:46 Est GFR (Non-Af Amer) 46 (> 60) L 09/11/16 07:46 BUN/Creatinine Ratio 34 (6-26) H 09/11/16 07:46 Glucose 418 mg/dL (70-99) H 09/11/16 07:46 POC Glucose 337 (58-89) H 09/11/16 07:15 Hemoglobin A1c 8.0 % (-5.6) H 09/09/16 21:29 Serum Osmolality 374 mOsm/kg (280-300) H 09/10/16 03:46 Calculated Osmolality 345 (280-300) H 09/11/16 07:46 Troponin I 0.08 ng/mL (0-0.03) H* 09/10/16 08:55 C-Reactive Protein 35 mg/L (Less than 5) H 09/10/16 03:46 Globulin 3.6 g/dL (2.4-3.5) H 09/10/16 03:46 Albumin/Globulin Ratio 1.0 (1.1-2.2) L 09/10/16 03:46 Triglycerides 212 mg/dL (< 150) H 09/10/16 03:46 Cholesterol 255 mg/dL (< 200) H 09/10/16 03:46 LDL Cholesterol, Calc 185 mg/dL (0-99) H 09/10/16 03:46 VLDL Cholesterol, Calc 42 mg/dL (< 31) H 09/10/16 03:46 HDL Cholesterol 28 mg/dL (40-59) L 09/10/16 03:46 Cholesterol/HDL Ratio 9.1 (0-4.9) H 09/10/16 03:46 Beta-Hydroxybutyric Acd > 2.00 mmol/L (0.02-0.27) H 09/09/16 14:39 TSH 0.253 mcIU/mL (0.350-4.840) L 09/10/16 00:53 Free T3 1.65 pg/mL (1.71-3.71) L 09/09/16 21:29 Total T3 0.51 ng/mL (0.58-1.59) L 09/09/16 21:29 Urine Clarity Cloudy (Clear) A 09/09/16 23:15 Ur Specific [place] > 1.030 (1.010-1.025) H 09/09/16 23:15 Urine Protein 30 mg/dL (Neg-Trace) H 09/09/16 23:15 Urine Glucose (UA) >=1000 mg/dL (Normal) H 09/09/16 23:15 Urine Ketones 15 mg/dL (Negative) H 09/09/16 23:15 Urine Bilirubin Moderate (Negative) H 09/09/16 23:15 Ur Squamous Epith Cells Many per lpf (None-Few) H 09/09/16 23:15 Granular Casts Few per lpf (None Seen) H 09/09/16 23:15 Microalb/Creat Ratio 57 (0-30) H 09/10/16 03:29 Protein/Creatinin Ratio 0.21 mg/mg (0-0.20) H 09/10/16 03:29 Urine Total Protein 35 mg/dL (1-14) H 09/10/16 03:29 - Microbiology Findings Microbiology Findings: Microbiology, Last 48 Hours 09/09/16 21:29 Blood Culture - Preliminary Peripheral Venipuncture No growth. 09/09/16 21:29 Blood Culture - Preliminary Peripheral Venipuncture No growth. 09/10/16 03:46 Blood Culture - Preliminary Peripheral Venipuncture No growth. - Clinical Findings Intake & Output: Intake & Output 09/10/16 09/11/16 09/11/16 23:59 07:59 15:59 Intake Total 1240 / 1240 Output Total 500 / 500 350 / 350 300 / 300 Balance 740 / 740 -350 / -350 -300 / -300 - VTE Documentation of Mechanical Device: Graduated compression elastic hosiery Consult Discharge Plan - Plan Referrals: NO,PCP [Primary Care Provider] - <Tim Victor - Last Filed: 09/11/16 12:49> Date of Encounter: 09/11/16 Objective PUL Vital signs: Last Vital Signs Temp 98.0 F 09/11/16 11:28 Pulse 95 09/11/16 12:12 Resp 16 09/11/16 12:12 BP 126/85 09/11/16 12:12 Pulse Ox 91 09/11/16 12:12 Results - Laboratory Findings CBC and BMP: 09/11/16 07:46 09/11/16 07:46 ABG ABG pH 7.32 pH Units (7.32-7.45) 09/09/16 15:58 ABG pCO2 54 mmHg (35-45) H 09/09/16 15:58 ABG pO2 122 mmHg (85-104) H 09/09/16 15:58 ABG O2 Saturation 98 % (95-98) 09/09/16 15:58 PT/INR, D-dimer PT 12.1 Seconds (9.4-12.1) 09/10/16 03:46 Abnormal lab findings: Abnormal lab results MCHC 31.1 g/dL (31.6-35.5) L 09/11/16 07:46 Plt Count 101 K/mcL (140-400) L 09/11/16 07:46 Platelet Estimate Slight Decrease (Normal) L 09/11/16 07:46 Immature Plt Fraction 7.6 % (1.1-6.1) H 09/11/16 07:46 ESR 44 mm/hr (0-10) H 09/10/16 03:46 APTT 24.7 Seconds (26.0-36.0) L 09/10/16 03:46 ABG pCO2 54 mmHg (35-45) H 09/09/16 15:58 ABG pO2 122 mmHg (85-104) H 09/09/16 15:58 ABG HCO3 27.8 mEQ/L (21-27) H 09/09/16 15:58 ABG Total CO2 29.5 mEq/L (20-26) H 09/09/16 15:58 ABG Hematocrit 53 % (35-51) H 09/09/16 15:58 VBG pH 7.48 pH Units (7.32-7.42) H 09/10/16 15:00 VBG pCO2 40 mmHg (41-51) L 09/10/16 15:00 VBG pO2 198 mmHg (25-40) H 09/10/16 15:00 VBG HCO3 29.8 mEq/L (21-27) H 09/10/16 15:00 Sodium 162 mEq/L (135-148) H* 09/09/16 15:58 Glucose 479 mg/dL (60-95) H 09/09/16 15:58 Sodium 152 mEq/L (136-145) H 09/11/16 07:46 Chloride 117 mEq/L (98-109) H 09/11/16 07:46 BUN 51 mg/dL (8-26) H 09/11/16 07:46 Creatinine 1.51 mg/dL (0.72-1.25) H 09/11/16 07:46 Est GFR ( Amer) 56 (> 60) L 09/11/16 07:46 Est GFR (Non-Af Amer) 46 (> 60) L 09/11/16 07:46 BUN/Creatinine Ratio 34 (6-26) H 09/11/16 07:46 Glucose 418 mg/dL (70-99) H 09/11/16 07:46 POC Glucose 499 (58-89) H* 09/11/16 11:21 Hemoglobin A1c 8.0 % (-5.6) H 09/09/16 21:29 Serum Osmolality 374 mOsm/kg (280-300) H 09/10/16 03:46 Calculated Osmolality 345 (280-300) H 09/11/16 07:46 Troponin I 0.08 ng/mL (0-0.03) H* 09/10/16 08:55 C-Reactive Protein 35 mg/L (Less than 5) H 09/10/16 03:46 Globulin 3.6 g/dL (2.4-3.5) H 09/10/16 03:46 Albumin/Globulin Ratio 1.0 (1.1-2.2) L 09/10/16 03:46 Triglycerides 212 mg/dL (< 150) H 09/10/16 03:46 Cholesterol 255 mg/dL (< 200) H 09/10/16 03:46 LDL Cholesterol, Calc 185 mg/dL (0-99) H 09/10/16 03:46 VLDL Cholesterol, Calc 42 mg/dL (< 31) H 09/10/16 03:46 HDL Cholesterol 28 mg/dL (40-59) L 09/10/16 03:46 Cholesterol/HDL Ratio 9.1 (0-4.9) H 09/10/16 03:46 Beta-Hydroxybutyric Acd > 2.00 mmol/L (0.02-0.27) H 09/09/16 14:39 TSH 0.253 mcIU/mL (0.350-4.840) L 09/10/16 00:53 Free T3 1.65 pg/mL (1.71-3.71) L 09/09/16 21:29 Total T3 0.51 ng/mL (0.58-1.59) L 09/09/16 21:29 Urine Clarity Cloudy (Clear) A 09/09/16 23:15 Ur Specific [place] > 1.030 (1.010-1.025) H 09/09/16 23:15 Urine Protein 30 mg/dL (Neg-Trace) H 09/09/16 23:15 Urine Glucose (UA) >=1000 mg/dL (Normal) H 09/09/16 23:15 Urine Ketones 15 mg/dL (Negative) H 09/09/16 23:15 Urine Bilirubin Moderate (Negative) H 09/09/16 23:15 Ur Squamous Epith Cells Many per lpf (None-Few) H 09/09/16 23:15 Granular Casts Few per lpf (None Seen) H 09/09/16 23:15 Microalb/Creat Ratio 57 (0-30) H 09/10/16 03:29 Protein/Creatinin Ratio 0.21 mg/mg (0-0.20) H 09/10/16 03:29 Urine Total Protein 35 mg/dL (1-14) H 09/10/16 03:29 - Microbiology Findings Microbiology Findings: Microbiology, Last 48 Hours 09/09/16 21:29 Blood Culture - Preliminary Peripheral Venipuncture No growth. 09/09/16 21:29 Blood Culture - Preliminary Peripheral Venipuncture No growth. 09/10/16 03:46 Blood Culture - Preliminary Peripheral Venipuncture No growth. - Clinical Findings Intake & Output: Intake & Output 09/10/16 09/11/16 09/11/16 23:59 07:59 15:59 Intake Total 1240 / 1240 740 / 740 Output Total 500 / 500 350 / 350 700 / 700 Balance 740 / 740 -350 / -350 40 / 40 - Attending Attestation I examined this patient and my medical decision-making was reviewed with the NURSE ORTHOPAEDIC/PA/Advanced Practice Nurse/Resident Physician. I agree with the documented findings, disposition and treatment plan as described except to the extent set forth below. Impression: 1. Hyperglycemia 2. Hypernaremia 3. URIEL 4. AMS Plan: 1. Insulin given starting basal/bolus dosing 2. improving. sodium today 152. nephro following cont 1/2NS. Stop D5W; encourage PO intake 3. s/t to dehydration improving. Appropriate UOP 4. Has markedly improved. Probably near baseline suspect underlying dementia. Stable for transfer to telemetry for ongoing care
[2016-09-11] MEDS: *HR* Heparin 5,000 UNIT/ML VIAL SQ SCH ×2 (09:36→20:37)
[2016-09-11] MEDS: Insulin LISPRO 300 UNITS/3 ML VIAL SQ SCH ×4 (09:36→21:41)
--- NOTE | 2016-09-11 09:43 | Nephrology Progress Note ---
Date of Encounter: 09/11/16 Time of Encounter: 09:15 - Assessment and Plan (1) Hypernatremia Current Visit: Yes Status: Acute Patient presents to the hospital with altered mental status sodium level of 164. Repeat sodiums were 166. Patient hypernatremia likely caused by HHNC and dehydration. There has been slow improvement patient hypernatremia seen with continued fluids with D5 and half-normal saline. His sodium level has come down to 152 since yesterday. Patient's serum osmotically and urine osmolality are both elevated, indicating proper response by patient kidneys to dehydration and unlikely SIADH. Patient free water deficit of 5.5 to 6 L at the time of presentation. Recommend continuous IV fluid repletion with goal improvement in patient's sodium no more than 10 per day Sodium appears to be coming down at an appropriate rate Continue to encourage PO intake Continue 0.45 saline at low dose, adjust as needed to prevent to precipitous a drop in patient sodium Recommend regular checks of patient's sodium, every 12 hours (2) HHNC (hyperglycemic hyperosmolar nonketotic coma) Current Visit: Yes Status: Acute Patient presented with elevated blood glucose, altered mental status, and elevated serum sodium without acidosis. Patient was initially placed on insulin drip and is receiving fluids for his dehydration. He was transitioned off insulin drip yesterday, but has continued have elevated blood sugars due largely to continue fluid repletion with D5 in half-normal saline. Although patient alert is alert and oriented 1, with history of dementia with unclear baseline. Continue treatment for hypernatremia and dehydration as above Continue close monitoring of patient blood sugar Continue management per primary team (3) Renal insufficiency Current Visit: Yes Status: Acute Nonoliguric acute kidney injury with unknown baseline renal function, URIEL or URIEL on CKD?. Patient presents with elevated serum creatinine of 2.72 with estimated GFR of 23. There are no records available as the patient baseline renal function. He appears to be dehydrated and FeNa of 0.2% suggests prerenal cause of his acute kidney injury. Initial improvement in the patient renal function seen continued fluid repletion, but renal function has remained stable since yesterday. Continue fluid repletion as above We will trend renal function with every 6 -8 hours chemistry Avoid nephrotoxins if possible Expect improvement in patient renal function as improvement of fluid status seen (4) Dehydration Current Visit: Yes Status: Acute Patient unreliable historian, likely has some degree of decreased by mouth prior to/contributory to current status. Elevated serum osmolality, elevated urine osmolality, hypernatremia, hyperglycemia are all evidence of/contributing factors to patient. Continue continue IV fluid repletion as above (5) Acute encephalopathy Current Visit: Yes Status: Acute Patient encephalopathy likely due to current dehydration, decreased intravascular volume, hypernatremia, hyperosmolar state, and hyperglycemia. Recommendations above Continue management per primary team Subjective Principal diagnosis: altered mental status Interval history: Patient is alert and eating breakfast this morning. He states that he is feeling okay and has a decent appetite. He denies any lightheadedness or dizziness. He is very focused on breakfast and does not appear to want to engage in conversation. Objective - Vital Signs Vital signs: Vital Signs Temp Pulse Resp BP Pulse Ox 09/11/16 08:30 98.3 F 09/11/16 06:00 91 14 119/81 92 09/11/16 04:55 91 16 145/94 92 09/11/16 04:00 98.1 F 93 16 129/84 93 09/11/16 03:00 97 18 124/84 93 09/11/16 02:00 94 16 99/64 93 09/11/16 01:00 90 16 128/89 91 09/10/16 23:53 98 18 116/79 92 09/10/16 23:02 98 18 115/80 92 09/10/16 21:51 96 18 119/86 92 09/10/16 20:51 99 16 113/79 94 09/10/16 20:00 97.9 F 97 16 134/91 92 09/10/16 18:26 100 14 137/113 92 09/10/16 17:35 102 19 132/82 92 09/10/16 16:13 99 09/10/16 16:11 99 12 131/85 93 09/10/16 15:09 95 12 123/81 93 09/10/16 13:00 98 10 126/85 09/10/16 12:18 100 09/10/16 12:16 99 12 153/92 94 09/10/16 11:45 98.5 F 09/10/16 11:23 96 12 143/93 91 09/10/16 10:36 101 11 155/119 94 Intake and Output 09/10/16 09/11/1617 23:59 07:59 15:59 Intake Total 1240 / 1240 240 / 240 Output Total 500 / 500 350 / 350 300 / 300 Balance 740 / 740 -350 / -350 -60 / -60 Intake: IV Fluids 1000 / 1000 Dextrose 5% 1,000 ML @ 80 1000 / 1000 mls/hr IVC .[id number] [facility] Rx#:[id number] Oral 240 / 240 240 / 240 Output: Catheter 500 / 500 350 / 350 300 / 300 Other: Meal Dinner Breakfast Percent of Meal Consumed 50% 95% Blood Glucose* 261 337 - General Appearance General appearance: Present: appears started age, cachectic EENT: Present: ATNC, mucous membranes moist Respiratory: Present: clear. Absent: wheezing, rales, rhonchi Cardiology: Present: no murmurs, no rub, no gallops, no edema, regular rate, regular rhythm, normal S1, normal S2 Gastrointestinal: Present: normoactive bowel sounds, no tenderness Integumentary: Present: no rash, warm and dry Neurologic: Present: no focal deficit, no asterixis, disoriented (A&Ox1 ( oriented to self only)) Musculoskeletal: Present: no deformities, no erythema Psychiatric: Present: mood/affect appropriate - Lab 09/11/16 07:46 09/11/16 07:46 Most recent lab results ABG pH 7.32 pH Units (7.32-7.45) 09/09/16 15:58 ABG pCO2 54 mmHg (35-45) H 09/09/16 15:58 ABG pO2 122 mmHg (85-104) H 09/09/16 15:58 ABG HCO3 27.8 mEQ/L (21-27) H 09/09/16 15:58 ABG O2 Saturation 98 % (95-98) 09/09/16 15:58 Calcium 8.8 mg/dL (8.6-10.8) 09/11/16 07:46 Phosphorus 2.5 mg/dL (2.3-4.7) 09/10/16 15:00 Magnesium 2.5 mg/dL (1.6-2.6) 09/10/16 15:00 Urine Creatinine 169 mg/dL 09/10/16 03:29 Urine Sodium 20.0 mEq/L 05/02/17 03:29 Urine Total Protein 35 mg/dL (1-14) H 09/10/16 03:29 - VTE Documentation of Mechanical Device: Graduated compression elastic hosiery Consult Discharge Plan - Plan Referrals: NO,PCP [Primary Care Provider] -
[2016-09-11] MEDS ORDERED: Insulin LISPRO 300 UNITS/3 ML VIAL SQ PRN (10:04)
[2016-09-11] MEDS ORDERED: Dextrose Gel 15 GM PO PRN ×2 (10:04)
[2016-09-11] MEDS ORDERED: *HR* Morphine 2 MG/ML SYRINGE IVP PRN (10:04)
[2016-09-11] MEDS ORDERED: Ipratropium/Albuterol Neb 3 ML IH PRN (10:04)
[2016-09-11] MEDS ORDERED: Naloxone 0.4 MG/ML INJ IVP PRN (10:04)
[2016-09-11] MEDS ORDERED: D5% in Water 1,000 ML IVC PRN (10:04)
[2016-09-11] MEDS ORDERED: Acetaminophen 325 MG TABLET PO PRN (10:04)
[2016-09-11] MEDS ORDERED: Calcium Gluconate 1,000 MG in D5% in Water 100 ML IVPB PRN (10:04)
[2016-09-11] MEDS ORDERED: Sodium Phosphate 30 MMOL in D5% in Water 100 ML IVPB PRN (10:04)
[2016-09-11] MEDS ORDERED: *HR* Dextrose 50 % in Water (Syg) 50 ML SYRINGE IVP PRN (10:04)
[2016-09-11] MEDS ORDERED: Magnesium Sulfate 2 GM in D5% in Water 100 ML IVPB PRN (10:04)
[2016-09-11] MEDS ORDERED: Potassium Phosphate 44 MEQ in 0.9 % Sodium Chloride 250 ML IVPB PRN (10:04)
[2016-09-11] MEDS ORDERED: *HR* OxyCODONE Immed Rel 5 MG TABLET PO PRN (10:04)
[2016-09-11] MEDS: Insulin DETEMIR 100 UNIT/ML X5UNITS SQ SCH ×2 (13:21→22:19)
[2016-09-11 16:52] LABS: Calcium 9.1 mg/dL (8.6-10.8); Potassium 3.6 mEq/L (3.5-4.5)
[2016-09-12 05:14] LABS: BUN/Creatinine Ratio 34 (6-26); Blood Urea Nitrogen 35 mg/dL (8-26); Carbon Dioxide 27 mEq/L (19-29); Chloride 118 mEq/L (98-109); Glucose 123 mg/dL (70-99); Osmolality,Calculated 325 (280-300); Potassium 3.1 mEq/L (3.5-4.5); Sodium 153 mEq/L (136-145); eGFR For African Americans > 60 (> 60); eGFR For Non-African Americans > 60 (> 60)
[2016-09-12] MEDS: *HR* Heparin 5,000 UNIT/ML VIAL SQ SCH ×2 (06:24→18:12)
[2016-09-12] MEDS: Insulin DETEMIR 100 UNIT/ML X5UNITS SQ SCH ×2 (09:41→20:41)
[2016-09-12] MEDS: Insulin LISPRO 300 UNITS/3 ML VIAL SQ SCH ×4 (09:42→20:41)
--- NOTE | 2016-09-12 10:04 | Nephrology Progress Note ---
Date of Encounter: 09/12/16 Time of Encounter: 08:10 - Assessment and Plan (1) Hypernatremia Current Visit: Yes Status: Acute Patient presents to the hospital with altered mental status sodium level of 164. Repeat sodiums were 166. Patient hypernatremia likely caused by HHNC and dehydration. There has been slow improvement patient hypernatremia seen with continued fluids with D5 and half-normal saline. His sodium level has come down to 153 since admission. Patient's serum osmotically and urine osmolality are both elevated, indicating proper response by patient kidneys to dehydration and unlikely SIADH. Patient free water deficit of 5.5 to 6 L at the time of presentation. Recommend continuous IV fluid repletion with goal improvement in patient's sodium no more than 10 per day Sodium appears to be coming down at an appropriate rate Continue to encourage PO intake Continue 0.45 saline at low dose, adjust as needed to prevent to precipitous a drop in patient sodium Recommend regular checks of patient's sodium, every 12 hours, to make sure sodium is not going up With improvement in patient sodium, Nephrology will sign off for now. Will continue chart checks going forward. Please reconsult if there are additional concerns. (2) Renal insufficiency Current Visit: Yes Status: Acute Nonoliguric acute kidney injury with unknown baseline renal function, URIEL or URIEL on CKD?. Patient presents with elevated serum creatinine of 2.72 with estimated GFR of 23. There are no records available as the patient baseline renal function. He appears to be dehydrated and FeNa of 0.2% suggests prerenal cause of his acute kidney injury. Continued improvement in patient renal function see with additional fluid repletion. Continue fluid repletion as above Continue daily chemistry to assess for renal function Avoid nephrotoxins if possible Expect improvement in patient renal function as improvement of fluid status seen (3) Dehydration Current Visit: Yes Status: Acute Patient unreliable historian, likely has some degree of decreased by mouth prior to/contributory to current status. Elevated serum osmolality, elevated urine osmolality, hypernatremia, hyperglycemia are all evidence of/contributing factors to patient. Continue continue IV fluid repletion as above (4) Hyperglycemia Current Visit: Yes Status: Resolved Patient presented with elevated blood glucose, altered mental status, and elevated serum sodium without acidosis. Patient was initially placed on insulin drip and is receiving fluids for his dehydration. He was transitioned off insulin drip yesterday, but has continued have elevated blood sugars due largely to continue fluid repletion with D5 in half-normal saline. Although patient alert is alert and oriented 1, with history of dementia with unclear baseline. Continue treatment for hypernatremia and dehydration as above Patient's blood sugar has improved with change of patient's fluids to 0.45% saline (from D5W or D5-.45) Continue close monitoring of patient blood sugar Continue management per primary team (5) Acute encephalopathy Current Visit: Yes Status: Acute Patient encephalopathy likely due to current dehydration, decreased intravascular volume, hypernatremia, hyperosmolar state, and hyperglycemia. Recommendations above Continue management per primary team Subjective Principal diagnosis: altered mental status Interval history: Patient continues to be A&Ox1. Patient reports feeling well today without complaints of lightheadedness, dizziness, or weakness. He denies palpitations and shortness of breath. Besides continuing to say that he was having decreased PO intake prior to his hospitalization, he is unable to contribute much else to his history. Objective - Vital Signs Vital signs: Vital Signs Temp Pulse Resp BP Pulse Ox 09/12/16 07:28 97.7 F 98 16 153/77 96 09/12/16 04:14 98.4 F 99 16 135/87 93 09/11/16 23:21 99.5 F 96 14 132/87 95 09/11/16 20:05 97.9 F 87 14 144/89 95 09/11/16 16:52 110 16 130/86 93 09/11/16 16:50 105 09/11/16 16:11 98.6 F 09/11/16 14:17 92 16 98/68 93 09/11/16 12:12 95 16 126/85 91 09/11/16 11:28 98.0 F 09/11/16 10:06 100 12 128/75 91 Intake and Output 09/11/16 09/12/16 09/12/16 23:59 07:59 15:59 Intake Total 200 / 200 120 / 120 Output Total 1150 / 1150 450 / 450 Balance -950 / -950 -450 / -450 120 / 120 Intake: Oral 200 / 200 120 / 120 Output: Catheter 1150 / 1150 450 / 450 Other: Meal Breakfast Percent of Meal Consumed 90% Stool Size Smear Stool Color Brown # Bowel Movements 0 Weight 63.957 kg Blood Glucose* 152 125 Patient Weight 09/12/16 23:59 Weight 63.957 kg - General Appearance Exam: General appearance: Present: appears started age, cachectic EENT: Present: ATNC, mucous membranes moist Respiratory: Present: clear. Absent: wheezing, rales, rhonchi Cardiology: Present: no murmurs, no rub, no gallops, no edema, regular rate, regular rhythm, normal S1, normal S2 Gastrointestinal: Present: normoactive bowel sounds, no tenderness Integumentary: Present: no rash, warm and dry Neurologic: Present: no focal deficit, no asterixis, disoriented (A&Ox1 ( oriented to self only)) Musculoskeletal: Present: no deformities, no erythema Psychiatric: Present: mood/affect appropriate - Lab 09/11/16 07:46 09/12/16 03:59 Most recent lab results ABG pH 7.32 pH Units (7.32-7.45) 09/09/16 15:58 ABG pCO2 54 mmHg (35-45) H 09/09/16 15:58 ABG pO2 122 mmHg (85-104) H 09/09/16 15:58 ABG HCO3 27.8 mEQ/L (21-27) H 09/09/16 15:58 ABG O2 Saturation 98 % (95-98) 09/09/16 15:58 Calcium 9.0 mg/dL (8.6-10.8) 09/12/16 03:59 Phosphorus 2.5 mg/dL (2.3-4.7) 09/10/16 15:00 Magnesium 2.5 mg/dL (1.6-2.6) 09/10/16 15:00 Urine Creatinine 169 mg/dL 09/10/16 03:29 Urine Sodium 20.0 mEq/L 09/10/16 03:29 Urine Total Protein 35 mg/dL (1-14) H 09/10/16 03:29 - VTE Documentation of Mechanical Device: Graduated compression elastic hosiery Consult Discharge Plan - Plan Referrals: NO,PCP [Primary Care Provider] -
--- NOTE | 2016-09-12 11:52 | Internal Med Progress Note ---
Date of Encounter: 09/12/16 Time of Encounter: 11:30 - Assessment and plan (1) Hypernatremia Current Visit: Yes Status: Acute Assessment and plan: Admitted with severe dehydration and poor oral intake with serum sodium of 164. Nephrology follow-up appreciated. Patient has been receiving hypotonic fluids with improvement in serum sodium, noted to be 153 today. Continue half- normal saline and monitor urine output closely. Encourage oral fluid intake. Goal correction of serum sodium not to exceed 8-10 mEq in 24 hours. Noted to have hypokalemia, replace with oral potassium chloride. (2) URIEL (acute kidney injury) Current Visit: Yes Status: Resolved Assessment and plan: Serum creatinine noted to have normalized with IV hydration. Continue to monitor. (3) HHNC (hyperglycemic hyperosmolar nonketotic coma) Current Visit: Yes Status: Resolved (4) Acute encephalopathy Current Visit: Yes Status: Acute Assessment and plan: Patient has no family and is currently noted to be only oriented to self. Patient likely has underlying dementia, which is worsening along with underlying metabolic encephalopathy. He does not seem to be able to make informed decisions at this time and would require legal guardian. Fall precautions and supportive care. (5) Elevated troponin Current Visit: Yes Status: Resolved Assessment and plan: Likely due to extreme dehydration and demand ischemia. Outpatient cardiology follow-up. (6) CAD (coronary artery disease) Current Visit: Yes Status: Chronic Qualifiers: Coronary Disease-Associated Artery/Lesion type: bypass graft [place] vs. transplanted heart: [place] heart Associated angina: without angina Qualified Code(s): I25.810 - Atherosclerosis of coronary artery bypass graft(s) without angina pectoris (7) Dementia Current Visit: Yes Status: Chronic Assessment and plan: oil well services dispatcher consult for safe discharge. 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 oil well services dispatcher currently working on possible retirement placement. Qualifiers: Dementia type: unspecified type Dementia behavioral disturbance: without behavioral disturbance Qualified Code(s): F03.90 - Unspecified dementia without behavioral disturbance (8) Hyperkalemia Current Visit: Yes Status: Resolved (9) Diabetes Current Visit: Yes Status: Chronic Assessment and plan: Patient does not remember diabetic medications or if he is compliant. Blood sugars noted to be better controlled with higher pre-meal readings. Continue basal bolus insulin regimen and diabetic diet. Hemoglobin A1c noted to be 8%. Patient will not be able to comprehend diabetes self-management education at this time. 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 Continue when necessary bronchodilators and supplemental oxygen. Qualifiers: COPD type: emphysema Emphysema type: centrilobular Qualified Code(s): J43.2 - Centrilobular emphysema - Subjective Interval history: Poor memory, unable to provide history; able to tell me his name, no further answers; no chest pain, shortness of breath reported; - Constitutional Vitals: Temp Pulse Resp BP Pulse Ox 97.9 F 90 14 157/83 94 09/12/16 10:39 09/12/16 10:39 09/12/16 10:39 09/12/16 10:39 09/12/16 10:39 General appearance: Present: A&O X 1, disheveled. Absent: answers questions appropriately - Respiratory Respiratory exam: Present: CTAB. Absent: accessory muscle use, rales, rhonchi, wheezes - Cardiovascular Cardiovascular exam: Present: RRR, +S1, +S2. Absent: diastolic murmur, gallop, rubs, systolic murmur - GI/Abdominal GI/Abdominal exam: Present: normal bowel sounds, soft, no peritoneal signs. Absent: distended, tenderness - Extremities Exam Extremities exam: Present: full ROM, warm, radial pulses palpable and symetrical. Absent: calf tenderness, cyanotic, pedal edema Internal Medicine: Result - Labs CBC & Chem 7: 09/11/16 07:46 09/12/16 03:59 Labs: BMP 09/11/16 09/12/16 16:26 03:59 Sodium 154 H 153 H Potassium 3.6 3.1 L Chloride 118 H 118 H Carbon Dioxide 28 27 BUN 45 H 35 H D Creatinine 1.53 H 1.02 Glucose 350 H 123 H Calcium 9.1 9.0 - ABG Interpretation ABG results: ABG ABG pH 7.32 pH Units (7.32-7.45) 09/09/16 15:58 ABG pCO2 54 mmHg (35-45) H 09/09/16 15:58 ABG pO2 122 mmHg (85-104) H 09/09/16 15:58 ABG O2 Saturation 98 % (95-98) 09/09/16 15:58 PT/INR, D-dimer PT 12.1 Seconds (9.4-12.1) 09/10/16 03:46 - VTE Documentation of Mechanical Device: Graduated compression elastic hosiery Consult Discharge Plan - Plan Referrals: NO,PCP [Primary Care Provider] -
[2016-09-13 04:18] LABS: BUN/Creatinine Ratio 27 (6-26); Calcium 8.5 mg/dL (8.6-10.8); Carbon Dioxide 27 mEq/L (19-29); Chloride 110 mEq/L (98-109); Glucose 152 mg/dL (70-99); Osmolality,Calculated 311 (280-300); Potassium 2.8 mEq/L (3.5-4.5); Sodium 147 mEq/L (136-145); eGFR For African Americans > 60 (> 60); eGFR For Non-African Americans > 60 (> 60)
[2016-09-13 04:19] LABS: Blood Urea Nitrogen 23 mg/dL (8-26)
[2016-09-13] MEDS: *HR* Heparin 5,000 UNIT/ML VIAL SQ SCH ×2 (06:30→18:11)
[2016-09-13] MEDS: Insulin LISPRO 300 UNITS/3 ML VIAL SQ SCH ×6 (07:49→20:18)
[2016-09-13] MEDS: Insulin DETEMIR 100 UNIT/ML X5UNITS SQ SCH ×2 (09:29→20:18)
--- NOTE | 2016-09-13 11:42 | Internal Med Progress Note ---
Date of Encounter: 09/13/16 Time of Encounter: 11:39 - Assessment and plan (1) Hypokalemia Current Visit: Yes Status: Acute Assessment and plan: Noted to be worsening as patient did not receive supplements yesterday. Replace with oral and IV potassium chloride and continue to monitor. (2) Hypernatremia Current Visit: Yes Status: Acute Assessment and plan: Admitted with severe dehydration and poor oral intake with serum sodium of 164. Nephrology follow-up appreciated. Patient has been receiving hypotonic fluids with improvement in serum sodium, noted to be 147 today. Continue half- normal saline and monitor urine output closely. Encourage oral fluid intake. Goal correction of serum sodium not to exceed 8-10 mEq in 24 hours. Noted to have hypokalemia, replace with oral potassium chloride. (3) URIEL (acute kidney injury) Current Visit: Yes Status: Resolved (4) HHNC (hyperglycemic hyperosmolar nonketotic coma) Current Visit: Yes Status: Resolved (5) Acute encephalopathy Current Visit: Yes Status: Acute Assessment and plan: Patient has no family and is currently noted to be oriented to self and place, cannot provide appropriate history. Patient likely has underlying dementia, which is worsening along with underlying metabolic encephalopathy. He does not seem to be able to make informed decisions at this time and would require legal guardian. Psychiatric consult for decision-making capacity. Fall precautions and supportive care. (6) Elevated troponin Current Visit: Yes Status: Resolved (7) CAD (coronary artery disease) Current Visit: Yes Status: Chronic Assessment and plan: Continue current medications. Qualifiers: Coronary Disease-Associated Artery/Lesion type: bypass graft [place] vs. 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 auto specialty services manager currently working on obtaining legal guardianship and possible [place] [facility] placement. Qualifiers: Dementia type: unspecified type Dementia behavioral disturbance: without behavioral disturbance Qualified Code(s): F03.90 - Unspecified dementia without behavioral disturbance (9) Hyperkalemia Current Visit: Yes Status: Resolved (10) Diabetes Current Visit: Yes Status: Chronic Assessment and plan: Patient does not remember diabetic medications or if he is compliant. Blood sugars noted to be uncontrolled with high pre-meal readings. Continue basal bolus insulin regimen and diabetic diet. Will add nutritional insulin. Hemoglobin A1c noted to be 8%. Patient will not be able to comprehend diabetes self-management education at this time. Qualifiers: Diabetes mellitus type: type 2 Diabetes mellitus complication status: with unspecified complications Diabetes mellitus rodent exterminator insulin use: with rodent exterminator use Qualified Code(s): E11.8 - Type 2 diabetes mellitus with unspecified complications; Z79.4 - [facility] (current) use of insulin (11) COPD (chronic obstructive pulmonary disease) Current Visit: Yes Status: Chronic Assessment and plan: Not noted to be in acute exacerbation. Continue when necessary bronchodilators and supplemental oxygen. Qualifiers: COPD type: emphysema Emphysema type: centrilobular Qualified Code(s): J43.2 - Centrilobular emphysema - Subjective Interval history: Unable to provide history; denies chest or abdominal pain; tolerates oral diet; awaiting guardianship and placement; - Constitutional Vitals: Temp Pulse Resp BP Pulse Ox 97.9 F 95 14 158/78 93 09/13/16 10:45 09/13/16 10:45 09/13/16 10:45 09/13/16 10:45 09/13/16 10:45 General appearance: Present: A&O X 2 (poor memory and insight into current condition, unable to answer appropriately). Absent: answers questions appropriately - Respiratory Respiratory exam: Present: CTAB. Absent: accessory muscle use, rales, rhonchi, wheezes - Cardiovascular Cardiovascular exam: Present: RRR, +S1, +S2. Absent: diastolic murmur, gallop, rubs, systolic murmur - GI/Abdominal GI/Abdominal exam: Present: normal bowel sounds, soft, no peritoneal signs. Absent: distended, tenderness Internal Medicine: Result - Labs CBC & Chem 7: 09/11/16 07:46 09/13/16 03:12 Labs: BMP 09/13/16 03:12 Sodium 147 H Potassium 2.8 L Chloride 110 H Carbon Dioxide 27 BUN 23 D Creatinine 0.86 Glucose 152 H Calcium 8.5 L - ABG Interpretation ABG results: ABG ABG pH 7.32 pH Units (7.32-7.45) 09/09/16 15:58 ABG pCO2 54 mmHg (35-45) H 09/09/16 15:58 ABG pO2 122 mmHg (85-104) H 09/09/16 15:58 ABG O2 Saturation 98 % (95-98) 09/09/16 15:58 PT/INR, D-dimer PT 12.1 Seconds (9.4-12.1) 09/10/16 03:46 - VTE Documentation of Mechanical Device: Graduated compression elastic hosiery Consult Discharge Plan - Plan Referrals: NO,PCP [Primary Care Provider] -
[2016-09-13] MEDS: Potassium Chloride Elixir 20 MEQ/15 ML UDC PO SCH ×2 (12:45→18:10)
[2016-09-14] MEDS: *HR* Heparin 5,000 UNIT/ML VIAL SQ SCH ×2 (05:26→17:01)
[2016-09-14 05:52] LABS: BUN/Creatinine Ratio 20 (6-26); Blood Urea Nitrogen 16 mg/dL (8-26); Calcium 8.3 mg/dL (8.6-10.8); Carbon Dioxide 27 mEq/L (19-29); Chloride 104 mEq/L (98-109); Glucose 193 mg/dL (70-99); Magnesium 1.3 mg/dL (1.6-2.6); Osmolality,Calculated 296 (280-300); Sodium 140 mEq/L (136-145); eGFR For African Americans > 60 (> 60); eGFR For Non-African Americans > 60 (> 60)
[2016-09-14] MEDS: Insulin LISPRO 300 UNITS/3 ML VIAL SQ SCH ×7 (08:19→20:32)
[2016-09-14] MEDS: Insulin DETEMIR 100 UNIT/ML X5UNITS SQ SCH ×2 (08:21→20:31)
[2016-09-14] MEDS ORDERED: Potassium Chloride Elixir 20 MEQ/15 ML UDC PO ONE (09:52)
[2016-09-14] MEDS ORDERED: Magnesium Sulfate 2 GM in D5% in Water 100 ML IVPB ONE (09:52)
--- NOTE | 2016-09-14 10:16 | Internal Med Progress Note ---
Date of Encounter: 09/14/16 Time of Encounter: 10:16 - Assessment and plan (1) Hypokalemia Current Visit: Yes Status: Acute Assessment and plan: Improving. Replace magnesium and then potassium with oral potassium chloride. (2) Hypernatremia Current Visit: Yes Status: Acute Assessment and plan: Admitted with severe dehydration and poor oral intake with serum sodium of 164. Nephrology has been on board, currently signed off. Patient has been receiving hypotonic fluids with improvement in serum sodium, noted to be 140 today. We will hold IV hydration at this time. Encourage oral fluid intake. Goal correction of serum sodium not to exceed 8-10 mEq in 24 hours. (3) URIEL (acute kidney injury) Current Visit: Yes Status: Resolved (4) HHNC (hyperglycemic hyperosmolar nonketotic coma) Current Visit: Yes Status: Resolved (5) Acute encephalopathy Current Visit: Yes Status: Acute Assessment and plan: Patient has no family and is currently noted to be oriented to self and place, cannot provide appropriate history. Patient likely has underlying dementia, which is worsening along with underlying metabolic encephalopathy. He does not seem to be able to make informed decisions at this time and would require legal guardian. Psychiatric consult appreciated, agree with obtaining legal guardianship. Fall precautions and supportive care. (6) Elevated troponin Current Visit: Yes Status: Resolved (7) CAD (coronary artery disease) Current Visit: Yes Status: Chronic Qualifiers: Coronary Disease-Associated Artery/Lesion type: bypass graft [place] vs. transplanted heart: [place] heart Associated angina: without angina Qualified Code(s): I25.810 - Atherosclerosis of coronary artery bypass graft(s) without angina pectoris (8) Dementia Current Visit: Yes Status: Chronic Qualifiers: Dementia type: unspecified type Dementia behavioral disturbance: without behavioral disturbance Qualified Code(s): F03.90 - Unspecified dementia without behavioral disturbance (9) Diabetes Current Visit: Yes Status: Chronic Assessment and plan: Blood sugars noted to be better controlled with intermittent premeal hyperglycemia. Continue Accu-Chek blood glucose monitoring with sliding scale insulin. Diabetic diet. 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 - Subjective Interval history: Denies chest or abdominal pain; no dyspnea; has bowel movements; awaiting legal guardianship and placement; - Constitutional Vitals: Temp Pulse Resp BP Pulse Ox 98.3 F 99 16 163/89 95 09/14/16 07:26 09/14/16 07:26 09/14/16 07:26 09/14/16 07:26 09/14/16 07:26 General appearance: Present: A&O X 2 (poor memory and insight into current condition, unable to answer appropriately). Absent: answers questions appropriately - Respiratory Respiratory exam: Present: CTAB. Absent: accessory muscle use, rales, rhonchi, wheezes - Cardiovascular Cardiovascular exam: Present: RRR, +S1, +S2. Absent: diastolic murmur, gallop, rubs, systolic murmur - GI/Abdominal GI/Abdominal exam: Present: normal bowel sounds, soft, no peritoneal signs. Absent: distended, tenderness Internal Medicine: Result - Labs CBC & Chem 7: 09/11/16 07:46 09/14/16 04:00 Labs: BMP 09/14/16 04:00 Sodium 140 Potassium 3.0 L Chloride 104 Carbon Dioxide 27 BUN 16 Creatinine 0.81 Glucose 193 H Calcium 8.3 L - ABG Interpretation ABG results: ABG ABG pH 7.32 pH Units (7.32-7.45) 09/09/16 15:58 ABG pCO2 54 mmHg (35-45) H 09/09/16 15:58 ABG pO2 122 mmHg (85-104) H 09/09/16 15:58 ABG O2 Saturation 98 % (95-98) 09/09/16 15:58 PT/INR, D-dimer PT 12.1 Seconds (9.4-12.1) 09/10/16 03:46 - VTE Documentation of Mechanical Device: Graduated compression elastic hosiery Consult Discharge Plan - Plan Referrals: NO,PCP [Primary Care Provider] -
--- NOTE | 2016-09-14 13:17 | Consult Note ---
Date of Encounter: 09/14/16 Time of Encounter: 12:25 Assessment & Recommendation (1) Delirium due to multiple etiologies Current visit: Yes Status: Acute Assessment & Recommendation: At this time patient condition presents delirious mental status with possible baseline dementia mild to moderate. More information are needed to confirm the level of dementia. Recommend obtaining guardianship emergently if possible in order to manage his safe discharge plans and placement. For agitation I would recommend small doses of Haldol and Ativan as necessary. Thank you for consultation. (2) History of dementia Current visit: Yes Status: Chronic History of Present Illness Patient: new to practice Requesting Physician: Marylou Hale MD Reason for consult: Decision making capacity History of present illness: Mr. Carver is a 71 year old male admitted to the hospital for evaluation to multiple medical condition as per record including hypokalemia hypernatremia and acute kidney injury hyperglycemic hypoosmolar nonketotic coma encephalopathy dementia etc. Psychiatric consultation was requested to evaluate decision-making capacity. On review of the records showed multiple problems and issues related to discharge planning and placement. Social work notes were helpful to explain the difficulty planning seems discharge for this patient due to multiple factors including legal history, inability to care for self and lack of resources. The nursing staff indicated that the emergency guardianship was obtained or applied for. The records do not include any information related to mental health treatments or diagnoses. On interview patient presented as an elderly white male, disheveled unshaven, calm and cooperative and slightly hard of hearing,. He could not answer history questions and displays impairments of recent and remote memory and he was oriented to self and place and not to time. He was a poor historian and unreliable source of information due to his condition. CC: Marylou Hale MD Past Med Surg Social Fam HX - Past Medical History Medical history: arthritis, coronary artery disease, dementia, diabetes, myocardial infarction, other - Past Surgical History Surgical History: coronary bypass (CABG), AICD, pacemaker - Social History Smoking Status: Unknown if ever smoked Alcohol use: unknown Drug use: unknown Medications & Allergies Unable To Obtain [Unable to Obtain] 09/09/16 [History] Allergies No Known Allergies Allergy (Verified 09/09/16 13:56) Mental Status Exam Patient orientation: Yes Person, Yes Place Level of alertness: Alert, Sedated Patient appearance: Appropriate, Unkempt, Disheveled, Thin Behavior: calm, cooperative, guarded Psychomotor activity: Slowed Eye contact: Fleeting Contact Mood description: Euthymic/stable, Irritable Affect description: congruent with mood, flat Speech pattern: Slowed, Delayed, Limited, Impoverished Speech volume: Soft/Quiet Thought process: Circumstantial, Tangential, Slowed Thinking Thought content: No Suicidal ideation, No Homicidal ideation, No Overt delusions Perceptual disturbances: No Auditory hallucinations, No Visual hallucinations Attention span: Unable to Focus Memory description: Immediate Impaired, Recent Impaired, Remote Impaired Patient reliability: Not Reliable Historian Intelligence estimate: Average Judgment: Limited Insight: Partial Results - Vital Signs Vital signs: Temp Pulse Resp BP Pulse Ox 98.9 F 96 16 112/71 92 09/14/16 11:00 09/14/16 11:00 09/14/16 11:00 09/14/16 11:00 09/14/16 11:00 - Labs Labs: Laboratory Last Values WBC 8.4 K/mcL (4.3-11.1) 09/11/16 07:46 RBC 4.33 M/mcL (4.19-5.50) 09/11/16 07:46 Hgb 13.4 g/dL (12.9-16.9) D 09/11/16 07:46 Hct 43.1 % (37.5-50.1) 09/11/16 07:46 MCV 99.5 fL (83.0-100.0) 09/11/16 07:46 MCH 30.9 pg (28.0-33.3) 09/11/16 07:46 MCHC 31.1 g/dL (31.6-35.5) L 09/11/16 07:46 RDW 12.7 % (11.5-14.5) 09/11/16 07:46 Plt Count 101 K/mcL (140-400) L 09/11/16 07:46 MPV 11.7 fL (9.4-12.4) 09/11/16 07:46 Immature Gran % 0.4 % (0-4) 09/11/16 07:46 Seg Neutrophils % 73.3 % 09/11/16 07:46 Lymphocytes % 20.0 % 09/11/16 07:46 Monocytes % 5.3 % 09/11/16 07:46 Eosinophils % 0.8 % 09/11/16 07:46 Basophils % 0.2 % 09/11/16 07:46 Neutrophils # 6.2 K/mcL (1.6-8.9) 09/11/16 07:46 Lymphocytes # 1.7 K/mcL (0.6-4.6) 09/11/16 07:46 Monocytes # 0.5 K/mcL (0.0-1.3) 09/11/16 07:46 Eosinophils # 0.1 K/mcL (0.0-0.6) 09/11/16 07:46 Basophils # 0.0 K/mcL (0.0-0.2) 09/11/16 07:46 Platelet Estimate Slight Decrease (Normal) L 09/11/16 07:46 Immature Plt Fraction 7.6 % (1.1-6.1) H 09/11/16 07:46 ESR 44 mm/hr (0-10) H 09/10/16 03:46 PT 12.1 Seconds (9.4-12.1) 09/10/16 03:46 INR 1.1 09/10/16 03:46 APTT 24.7 Seconds (26.0-36.0) L 09/10/16 03:46 ABG pH 7.32 pH Units (7.32-7.45) 09/09/16 15:58 ABG pCO2 54 mmHg (35-45) H 09/09/16 15:58 ABG pO2 122 mmHg (85-104) H 09/09/16 15:58 ABG HCO3 27.8 mEQ/L (21-27) H 09/09/16 15:58 ABG Total CO2 29.5 mEq/L (20-26) H 09/09/16 15:58 ABG O2 Saturation 98 % (95-98) 09/09/16 15:58 ABG Base Excess 0.4 mEq/L (-2.0 to 3.0) 09/09/16 15:58 ABG Hematocrit 53 % (35-51) H 09/09/16 15:58 VBG pH 7.48 pH Units (7.32-7.42) H 09/10/16 15:00 VBG pCO2 40 mmHg (41-51) L 09/10/16 15:00 VBG pO2 198 mmHg (25-40) H 09/10/16 15:00 VBG HCO3 29.8 mEq/L (21-27) H 09/10/16 15:00 Sodium 162 mEq/L (135-148) H* 09/09/16 15:58 Potassium 4.2 mEq/L (3.5-5.3) 09/09/16 15:58 Glucose 479 mg/dL (60-95) H 09/09/16 15:58 Ionized Calcium 1.23 mmol/L (1.15-1.35) 09/09/16 15:58 Liter Flow 30 L/MIN 09/09/16 15:58 Blood Gas Modality NC 09/09/16 15:58 Sodium 140 mEq/L (136-145) 09/14/16 04:00 Potassium 3.0 mEq/L (3.5-4.5) L 09/14/16 04:00 Chloride 104 mEq/L (98-109) 09/14/16 04:00 Carbon Dioxide 27 mEq/L (19-29) 09/14/16 04:00 BUN 16 mg/dL (8-26) 09/14/16 04:00 Creatinine 0.81 mg/dL (0.72-1.25) 09/14/16 04:00 Est GFR ( Amer) > 60 (> 60) 09/14/16 04:00 Est GFR (Non-Af Amer) > 60 (> 60) 09/14/16 04:00 BUN/Creatinine Ratio 20 (6-26) 09/14/16 04:00 Glucose 193 mg/dL (70-99) H 09/14/16 04:00 POC Glucose 76 (58-89) 09/13/16 20:15 Est Mean Plasma Glucose 183 mg/dl 09/09/16 21:29 Hemoglobin A1c 8.0 % (-5.6) H 09/09/16 21:29 Serum Osmolality 374 mOsm/kg (280-300) H 09/10/16 03:46 Calculated Osmolality 296 (280-300) 09/14/16 04:00 Lactic Acid 1.7 mmol/L (0.5-2.2) 09/10/16 00:53 Calcium 8.3 mg/dL (8.6-10.8) L 09/14/16 04:00 Ionized Calcium 1.23 mmol/L (1.15-1.35) 09/10/16 13:06 Phosphorus 2.5 mg/dL (2.3-4.7) 09/10/16 15:00 Magnesium 1.3 mg/dL (1.6-2.6) L 09/14/16 04:00 Total Bilirubin 0.8 mg/dL (0.2-1.2) D 09/10/16 03:46 Direct Bilirubin 0.2 mg/dL (0.0-0.5) 09/09/16 21:29 Indirect Bilirubin 0.3 mg/dL (0.0-1.2) 09/09/16 21:29 AST 11 Units/L (5-34) 09/10/16 03:46 ALT 11 Units/L (0-55) 09/10/16 03:46 Alkaline Phosphatase 90 Units/L (38-126) 09/10/16 03:46 Ammonia 27 mcmol/L (18-72) 09/10/16 00:53 Troponin I 0.08 ng/mL (0-0.03) H* 09/10/16 08:55 C-Reactive Protein 35 mg/L (Less than 5) H 09/10/16 03:46 Serum Total Protein 7.1 g/dL (6.0-8.3) 09/10/16 03:46 Albumin 3.5 g/dL (3.5-5.0) 09/10/16 03:46 Globulin 3.6 g/dL (2.4-3.5) H 09/10/16 03:46 Albumin/Globulin Ratio 1.0 (1.1-2.2) L 09/10/16 03:46 Triglycerides 212 mg/dL (< 150) H 09/10/16 03:46 Cholesterol 255 mg/dL (< 200) H 09/10/16 03:46 LDL Cholesterol, Calc 185 mg/dL (0-99) H 09/10/16 03:46 VLDL Cholesterol, Calc 42 mg/dL (< 31) H 09/10/16 03:46 HDL Cholesterol 28 mg/dL (40-59) L 09/10/16 03:46 Cholesterol/HDL Ratio 9.1 (0-4.9) H 09/10/16 03:46 Beta-Hydroxybutyric Acd > 2.00 mmol/L (0.02-0.27) H 09/09/16 14:39 TSH 0.253 mcIU/mL (0.350-4.840) L 09/10/16 00:53 Free T4 1.23 ng/dl (0.70-1.48) 09/09/16 21:29 Free T3 1.65 pg/mL (1.71-3.71) L 09/09/16 21:29 Total T3 0.51 ng/mL (0.58-1.59) L 09/09/16 21:29 Urine Color Yellow (Yellow) 09/09/16 23:15 Urine Clarity Cloudy (Clear) A 09/09/16 23:15 Urine pH 5.0 pH Units (5.0-8.0) 09/09/16 23: Ur Specific [place] > 1.030 (1.010-1.025) H 09/09/16 23:15 Urine Protein 30 mg/dL (Neg-Trace) H 09/09/16 23:15 Urine Glucose (UA) >=1000 mg/dL (Normal) H 09/09/16 23:15 Urine Ketones 15 mg/dL (Negative) H 09/09/16 23:15 Urine Blood Negative (Negative) 09/09/16 23:15 Urine Nitrite Negative (Negative) 09/09/16 23: Urine Bilirubin Moderate (Negative) H 09/09/16 23: Urine Urobilinogen Normal mg/dL (Normal) 09/09/16 23:15 Ur Leukocyte Esterase Negative (Negative) 09/09/16 23:15 Urine Microscopic RBC 0-3 per hpf (0-3) 09/09/16 23:15 Urine Microscopic WBC 0-3 per hpf (0-3) 09/09/16 23:15 Ur Squamous Epith Cells Many per lpf (None-Few) H 09/09/16 23:15 Urine Bacteria None Seen per hpf (None-Few) 09/09/16 23: Hyaline Casts Test Not Performed 09/09/16 23: Granular Casts Few per lpf (None Seen) H 09/09/16 23:15 Ur Culture Indicated? NO (NO) 09/09/16 23:15 Urine Osmolality 895 mOsm/kg (300-1090) 09/10/16 03:29 Urine Creatinine 169 mg/dL 09/10/16 03:29 Urine Microalbumin 97 mg/L 09/10/16 03:29 Microalb/Creat Ratio 57 (0-30) H 09/10/16 03:29 Protein/Creatinin Ratio 0.21 mg/mg (0-0.20) H 09/10/16 03:29 Urine Sodium 20.0 mEq/L 09/10/16 03:29 Urine Chloride 21 mEq/L 09/10/16 03:29 Urine Total Protein 35 mg/dL (1-14) H 09/10/16 03:29 Urine Opiates Screen Negative ng/mL (Izqlox=835) 09/09/16 23:15 Ur Barbiturates Screen Negative ng/mL (Trrzmw=030) 09/09/16 23:15 Ur Phencyclidine Scrn Negative ng/mL (Cutoff=25) 09/09/16 23:15 Ur Amphetamines Screen Negative ng/mL (Wzjqul=8359) 09/09/16 23:15 U Benzodiazepines Scrn Negative ng/mL (Pqgycl=489) 09/09/16 23:15 Urine Cocaine Screen Negative ng/mL (Cutoff= 300) 09/09/16 23:15 U Marijuana (THC) Screen Negative ng/mL (Cutoff = 50) 09/09/16 23:15 Ethyl Alcohol < 10 mg/dL (0-10) 09/09/16 21:29 Consult Discharge Plan - Plan Referrals: NO,PCP [Primary Care Provider] -
[2016-09-15 04:10] LABS: BUN/Creatinine Ratio 22 (6-26); Blood Urea Nitrogen 22 mg/dL (8-26); Calcium 8.7 mg/dL (8.6-10.8); Carbon Dioxide 30 mEq/L (19-29); Chloride 107 mEq/L (98-109); Glucose 135 mg/dL (70-99); Magnesium 1.7 mg/dL (1.6-2.6); Osmolality,Calculated 301 (280-300); Potassium 3.2 mEq/L (3.5-4.5); Sodium 143 mEq/L (136-145); eGFR For African Americans > 60 (> 60); eGFR For Non-African Americans > 60 (> 60)
[2016-09-15] MEDS: *HR* Heparin 5,000 UNIT/ML VIAL SQ SCH ×2 (05:55→17:53)
[2016-09-15] MEDS: Insulin LISPRO 300 UNITS/3 ML VIAL SQ SCH ×7 (08:43→20:21)
[2016-09-15] MEDS: Insulin DETEMIR 100 UNIT/ML X5UNITS SQ SCH ×2 (08:44→20:21)
[2016-09-15] MEDS ORDERED: Potassium Chloride Elixir 20 MEQ/15 ML UDC PO ONE (10:57)
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
--- NOTE | 2016-09-16 03:46 | Event Note ---
Date of Encounter: 09/16/16 Time of Encounter: 03:44 Patient is agitated with telemetry and threatening to leave. Will d/c telemetry for now for patient comfort and compliance that he will stay.
[2016-09-16 05:42] LABS: BUN/Creatinine Ratio 21 (6-26); Blood Urea Nitrogen 21 mg/dL (8-26); Calcium 8.3 mg/dL (8.6-10.8); Carbon Dioxide 26 mEq/L (19-29); Chloride 105 mEq/L (98-109); Glucose 286 mg/dL (70-99); Osmolality,Calculated 299 (280-300); Potassium 3.6 mEq/L (3.5-4.5); Sodium 138 mEq/L (136-145); eGFR For African Americans > 60 (> 60); eGFR For Non-African Americans > 60 (> 60)
[2016-09-16] MEDS: *HR* Heparin 5,000 UNIT/ML VIAL SQ SCH ×2 (05:57→17:18)
[2016-09-16] MEDS: Insulin LISPRO 300 UNITS/3 ML VIAL SQ SCH ×7 (07:56→21:19)
[2016-09-16] MEDS: Insulin DETEMIR 100 UNIT/ML X5UNITS SQ SCH ×2 (07:57→21:19)
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
[2016-09-17] MEDS: *HR* Heparin 5,000 UNIT/ML VIAL SQ SCH ×2 (06:10→18:30)
[2016-09-17] MEDS: Insulin LISPRO 300 UNITS/3 ML VIAL SQ SCH ×7 (07:56→23:40)
[2016-09-17] MEDS: Insulin DETEMIR 100 UNIT/ML X5UNITS SQ SCH ×2 (07:57→23:40)
[2016-09-17] MEDS ORDERED: Haloperidol Lactate 5 MG/ML VIAL IVP PRN (14:52)
[2016-09-17] MEDS ORDERED: Haloperidol Lactate 5 MG/ML VIAL IM PRN (15:54)
--- NOTE | 2016-09-17 16:04 | Internal Med Progress Note ---
Date of Encounter: 09/17/16 Time of Encounter: 16:01 - Assessment and plan (1) History of dementia Current Visit: Yes Status: Chronic Assessment and plan: Progressing, worse in combination with acute metabolic encephalopathy not able to make medical decisions , emergency guardianship process started (2) Altered mental status Current Visit: Yes Status: Acute Assessment and plan: Start using intramuscular Haldol as needed High risk of falling, continue Sitter 1 on 1 Qualifiers: Altered mental status type: delirium Qualified Code(s): R41.0 - Disorientation, unspecified (3) HHNC (hyperglycemic hyperosmolar nonketotic coma) Current Visit: Yes Status: Resolved Assessment and plan: The patient was in the ICU He is refusing insulin He denies being a diabetic although his glucose was close to 500, not able to understand his condition Continue insulin sliding scale and levermi 15 units BID Start metformin (4) COPD (chronic obstructive pulmonary disease) Current Visit: Yes Status: Chronic Assessment and plan: Not noted to be in acute exacerbation. Continue when necessary bronchodilators and supplemental oxygen. Qualifiers: COPD type: emphysema Emphysema type: centrilobular Qualified Code(s): J43.2 - Centrilobular emphysema (5) Renal insufficiency Current Visit: Yes Status: Acute Assessment and plan: Acute renal failure likely secondary to severe dehydration Creatinine was 2.72, now back to normal (6) CAD (coronary artery disease) Current Visit: Yes Status: Chronic Assessment and plan: Continue current medications. Qualifiers: Coronary Disease-Associated Artery/Lesion type: bypass graft [place] vs. transplanted heart: [place] heart Associated angina: without angina Qualified Code(s): I25.810 - Atherosclerosis of coronary artery bypass graft(s) without angina pectoris (7) Hypokalemia Current Visit: Yes Status: Resolved Assessment and plan: improved with supplements; (8) Delirium due to multiple etiologies Current Visit: Yes Status: Acute (9) Essential hypertension Current Visit: Yes Status: Chronic Assessment and plan: Blood pressure noted to be well-controlled. Continue metoprolol and KRIS inhibitor for now. (10) Hypernatremia Current Visit: Yes Status: Acute Assessment and plan: Admitted with severe dehydration and poor oral intake with serum sodium of 164 ( increased up to 166, now normal ). Nephrology has been on board, currently signed off. Patient is currently off IV hydration, serum sodium noted to be 138 today. Encourage oral fluid intake. Goal correction of serum sodium not to exceed 8-10 mEq in 24 hours. - Subjective Interval history: The patient is disoriented in time, apparently he is not able to comprehend what it has been explained to him. He keeps repeating he is not a diabetic although his glucose was almost 500. Denies any chest pain, is not in distress , unable to complete review of systems due to confusion - Constitutional Vitals: Temp Pulse Resp BP Pulse Ox 97.6 F 84 18 128/81 94 09/17/16 12:08 09/17/16 12:08 09/17/16 12:08 09/17/16 12:08 09/17/16 12:08 General appearance: Present: disheveled, A&O X 2 (poor memory and insight into current condition, unable to answer appropriately), mild distress, underweight. Absent: answers questions appropriately - Head Head exam: Present: atraumatic, normocephalic - Eye Eye exam: Present: PERRL, conjuntiva pink, sclera anicteric Pupils: Present: PERRL - Neck Neck exam general surgery: Present: supple, trachea midline. Absent: lymphadenopathy - Respiratory Respiratory exam: Present: CTAB. Absent: accessory muscle use, rales, rhonchi, wheezes - Cardiovascular Cardiovascular exam: Present: RRR, +S1, +S2. Absent: diastolic murmur, gallop, rubs, systolic murmur - GI/Abdominal GI/Abdominal exam: Present: normal bowel sounds, soft, no peritoneal signs. Absent: distended, tenderness - Extremities Exam Extremities exam: Present: warm, radial pulses palpable and symetrical. Absent : calf tenderness, cyanotic, pedal edema - Neurological Exam Neurological exam: Present: CN II-XII intact, no focal deficits. Absent: oriented X3, pronater drift, facial droop, speech deficit - Skin Skin exam: Present: dry, intact Internal Medicine: Result - Labs CBC & Chem 7: 09/11/16 07:46 09/16/16 04:14 - ABG Interpretation ABG results: ABG ABG pH 7.32 pH Units (7.32-7.45) 09/09/16 15:58 ABG pCO2 54 mmHg (35-45) H 09/09/16 15:58 ABG pO2 122 mmHg (85-104) H 09/09/16 15:58 ABG O2 Saturation 98 % (95-98) 09/09/16 15:58 PT/INR, D-dimer PT 12.1 Seconds (9.4-12.1) 09/10/16 03:46 - VTE Documentation of Mechanical Device: Graduated compression elastic hosiery Consult Discharge Plan - Plan Referrals: NO,PCP [Primary Care Provider] -
[2016-09-17] MEDS: *HR* Metformin 500 MG TABLET PO SCH (16:23)
[2016-09-18] MEDS: *HR* Heparin 5,000 UNIT/ML VIAL SQ SCH ×2 (05:26→15:59)
[2016-09-18] MEDS: *HR* Metformin 500 MG TABLET PO SCH ×2 (07:51→15:58)
[2016-09-18] MEDS: Insulin LISPRO 300 UNITS/3 ML VIAL SQ SCH ×7 (07:59→22:49)
[2016-09-18] MEDS: Insulin DETEMIR 100 UNIT/ML X5UNITS SQ SCH ×2 (07:59→22:49)
--- NOTE | 2016-09-18 15:06 | Internal Med Progress Note ---
Date of Encounter: 09/18/16 Time of Encounter: 15:04 - Assessment and plan (1) History of dementia Current Visit: Yes Status: Chronic Assessment and plan: Progressing, worse in combination with acute metabolic encephalopathy not able to make medical decisions , emergency guardianship process started (2) Altered mental status Current Visit: Yes Status: Acute Assessment and plan: Start using intramuscular Haldol as needed High risk of falling, may discontinue Sitter 1 on 1 if stable with haldol PO 2 mg BID Psychiatry recommended ativan and haldol prn Qualifiers: Altered mental status type: delirium Qualified Code(s): R41.0 - Disorientation, unspecified (3) HHNC (hyperglycemic hyperosmolar nonketotic coma) Current Visit: Yes Status: Resolved Assessment and plan: The patient was in the ICU He is refusing insulin He denies being a diabetic although his glucose was close to 500, not able to understand his condition refusing finger sticks Continue insulin sliding scale and levermi 15 units BID Started metformin (4) COPD (chronic obstructive pulmonary disease) Current Visit: Yes Status: Chronic Assessment and plan: Not noted to be in acute exacerbation. Continue when necessary bronchodilators and supplemental oxygen. Qualifiers: COPD type: emphysema Emphysema type: centrilobular Qualified Code(s): J43.2 - Centrilobular emphysema (5) Renal insufficiency Current Visit: Yes Status: Acute Assessment and plan: Acute renal failure likely secondary to severe dehydration Creatinine was 2.72, now back to normal (6) CAD (coronary artery disease) Current Visit: Yes Status: Chronic Assessment and plan: Continue current medications. Qualifiers: Coronary Disease-Associated Artery/Lesion type: bypass graft [place] vs. transplanted heart: [place] heart Associated angina: without angina Qualified Code(s): I25.810 - Atherosclerosis of coronary artery bypass graft(s) without angina pectoris (7) Hypokalemia Current Visit: Yes Status: Resolved Assessment and plan: improved with supplements; (8) Delirium due to multiple etiologies Current Visit: Yes Status: Acute (9) Essential hypertension Current Visit: Yes Status: Chronic Assessment and plan: Blood pressure noted to be well-controlled. Continue metoprolol and KRIS inhibitor for now. (10) Hypernatremia Current Visit: Yes Status: Acute Assessment and plan: Admitted with severe dehydration and poor oral intake with serum sodium of 164 ( increased up to 166, now normal ). Nephrology has been on board, currently signed off. Patient is currently off IV hydration, serum sodium noted to be 138 today. Encourage oral fluid intake. Goal correction of serum sodium not to exceed 8-10 mEq in 24 hours. - Subjective Interval history: The patient is disoriented in time and place, apparently he is not able to comprehend what it has been explained to him. He keeps repeating he is not a diabetic although his glucose was almost 500. Denies any chest pain, is not in distress, unable to complete review of systems due to confusion - Constitutional Vitals: Temp Pulse Resp BP Pulse Ox 97.8 F 70 16 108/64 96 09/18/16 11:35 09/18/16 11:35 09/18/16 11:35 09/18/16 11:35 09/18/16 11:35 General appearance: Present: A&O X 1 (oriented in person only ), disheveled, mild distress, underweight. Absent: answers questions appropriately - Head Head exam: Present: atraumatic, normocephalic - Eye Eye exam: Present: PERRL, conjuntiva pink, sclera anicteric Pupils: Present: PERRL - Neck Neck exam general surgery: Present: supple, trachea midline. Absent: lymphadenopathy - Respiratory Respiratory exam: Present: CTAB. Absent: accessory muscle use, rales, rhonchi, wheezes - Cardiovascular Cardiovascular exam: Present: RRR, +S1, +S2. Absent: diastolic murmur, gallop, rubs, systolic murmur - GI/Abdominal GI/Abdominal exam: Present: normal bowel sounds, soft, no peritoneal signs. Absent: distended, tenderness - Extremities Exam Extremities exam: Present: warm, radial pulses palpable and symetrical. Absent : calf tenderness, cyanotic, pedal edema - Neurological Exam Neurological exam: Present: CN II-XII intact, oriented X3, no focal deficits. Absent: pronater drift, facial droop, speech deficit - Skin Skin exam: Present: dry, intact Internal Medicine: Result - Labs CBC & Chem 7: 09/11/16 07:46 09/16/16 04:14 - ABG Interpretation ABG results: ABG ABG pH 7.32 pH Units (7.32-7.45) 09/09/16 15:58 ABG pCO2 54 mmHg (35-45) H 09/09/16 15:58 ABG pO2 122 mmHg (85-104) H 09/09/16 15:58 ABG O2 Saturation 98 % (95-98) 09/09/16 15:58 PT/INR, D-dimer PT 12.1 Seconds (9.4-12.1) 09/10/16 03:46 - VTE Documentation of Mechanical Device: Graduated compression elastic hosiery Consult Discharge Plan - Plan Referrals: NO,PCP [Primary Care Provider] -
[2016-09-19] MEDS: *HR* Heparin 5,000 UNIT/ML VIAL SQ SCH ×2 (06:40→17:25)
[2016-09-19] MEDS: *HR* Metformin 500 MG TABLET PO SCH (07:43)
[2016-09-19] MEDS: Insulin DETEMIR 100 UNIT/ML X5UNITS SQ SCH (07:47)
[2016-09-19] MEDS: Insulin LISPRO 300 UNITS/3 ML VIAL SQ SCH ×2 (07:49→07:50)
[2016-09-19] MEDS ORDERED: Insulin Human Regular 10 UNIT in 0.9 % Sodium Chloride 10 ML IV ONE (09:34)
[2016-09-19] MEDS ORDERED: *HR* Dextrose 50 % in Water (Syg) 50 ML SYRINGE IVP PRN (09:41)
[2016-09-19] MEDS ORDERED: Insulin Human Regular 100 UNIT in 0.9 % Sodium Chloride 100 ML IVC SCH (09:45)
--- NOTE | 2016-09-19 09:49 | Internal Med Progress Note ---
Date of Encounter: 09/19/16 Time of Encounter: 09:47 - Assessment and plan (1) HHNC (hyperglycemic hyperosmolar nonketotic coma) Current Visit: Yes Status: Resolved Assessment and plan: The patient was in the ICU He was refusing insulin He denied being a diabetic although his glucose was more than 700, he is not able to understand his condition refusing finger sticks Was on insulin sliding scale and levermi 15 units BID Started metformin transfer to , give 10 units of IV regular insulr and start an insulin drip order STAT CBC, CMP and lactic acid (2) History of dementia Current Visit: Yes Status: Chronic Assessment and plan: Progressing, worse in combination with acute metabolic encephalopathy not able to make medical decisions , emergency guardianship process started (3) Altered mental status Current Visit: Yes Status: Acute Assessment and plan: Start using intramuscular Haldol as needed High risk of falling, discontinued Sitter 1 on 1 stable with haldol PO 2 mg BID Psychiatry recommended ativan and haldol prn Qualifiers: Altered mental status type: delirium Qualified Code(s): R41.0 - Disorientation, unspecified (4) COPD (chronic obstructive pulmonary disease) Current Visit: Yes Status: Chronic Assessment and plan: Not noted to be in acute exacerbation. Continue when necessary bronchodilators and supplemental oxygen. Qualifiers: COPD type: emphysema Emphysema type: centrilobular Qualified Code(s): J43.2 - Centrilobular emphysema (5) Renal insufficiency Current Visit: Yes Status: Acute Assessment and plan: Acute renal failure likely secondary to severe dehydration Creatinine was 2.72, now back to normal (6) CAD (coronary artery disease) Current Visit: Yes Status: Chronic Assessment and plan: Continue current medications. Qualifiers: Coronary Disease-Associated Artery/Lesion type: bypass graft [place] vs. transplanted heart: [place] heart Associated angina: without angina Qualified Code(s): I25.810 - Atherosclerosis of coronary artery bypass graft(s) without angina pectoris (7) Hypokalemia Current Visit: Yes Status: Resolved Assessment and plan: improved with supplements; (8) Delirium due to multiple etiologies Current Visit: Yes Status: Acute (9) Essential hypertension Current Visit: Yes Status: Chronic Assessment and plan: Blood pressure noted to be well-controlled. Continue metoprolol and KRIS inhibitor for now. (10) Hypernatremia Current Visit: Yes Status: Acute Assessment and plan: Admitted with severe dehydration and poor oral intake with serum sodium of 164 ( increased up to 166, now normal ). Nephrology has been on board, currently signed off. Patient is currently off IV hydration, serum sodium noted to be 138 today. Encourage oral fluid intake. Goal correction of serum sodium not to exceed 8-10 mEq in 24 hours. - Time Spent With Patient Greater than 35 minutes - Subjective Interval history: The patient is disoriented in time and place, apparently he is not able to comprehend what it has been explained to him. He keeps repeating he is not a diabetic although his glucose was more than 700. Denies any chest pain, is not in distress, unable to complete review of systems due to confusion - Constitutional Vitals: Temp Pulse Resp BP Pulse Ox 97.9 F 72 14 115/77 93 09/19/16 06:41 09/19/16 06:41 09/19/16 06:41 09/19/16 06:41 09/19/16 06:41 General appearance: Present: A&O X 1 (oriented in person only ), disheveled, mild distress, underweight. Absent: answers questions appropriately - Head Head exam: Present: atraumatic, normocephalic - Eye Eye exam: Present: PERRL, conjuntiva pink, sclera anicteric Pupils: Present: PERRL - Neck Neck exam general surgery: Present: supple, trachea midline. Absent: lymphadenopathy - Respiratory Respiratory exam: Present: CTAB. Absent: accessory muscle use, rales, rhonchi, wheezes - Cardiovascular Cardiovascular exam: Present: RRR, +S1, +S2. Absent: diastolic murmur, gallop, rubs, systolic murmur - GI/Abdominal GI/Abdominal exam: Present: normal bowel sounds, soft, no peritoneal signs. Absent: distended, tenderness - Extremities Exam Extremities exam: Present: warm, radial pulses palpable and symetrical. Absent : calf tenderness, cyanotic, pedal edema - Neurological Exam Neurological exam: Present: CN II-XII intact, no focal deficits. Absent: oriented X3, pronater drift, facial droop, speech deficit - Skin Skin exam: Present: dry, intact Internal Medicine: Result - Labs CBC & Chem 7: 09/11/16 07:46 09/19/16 09:07 Labs: BMP 09/19/16 09:07 Glucose 750 H* - ABG Interpretation ABG results: ABG ABG pH 7.32 pH Units (7.32-7.45) 09/09/16 15:58 ABG pCO2 54 mmHg (35-45) H 09/09/16 15:58 ABG pO2 122 mmHg (85-104) H 09/09/16 15:58 ABG O2 Saturation 98 % (95-98) 09/09/16 15:58 PT/INR, D-dimer PT 12.1 Seconds (9.4-12.1) 09/10/16 03:46 - VTE Documentation of Mechanical Device: Graduated compression elastic hosiery Consult Discharge Plan - Plan Referrals: NO,PCP [Primary Care Provider] -
[2016-09-19 10:21] LABS: Albumin 2.6 g/dL (3.5-5.0); Albumin/Globulin Ratio 0.6 (1.1-2.2); Bilirubin,Total 0.3 mg/dL (0.2-1.2); Calcium 10.1 mg/dL (8.6-10.8); Globulin 4.3 g/dL (2.4-3.5); Potassium 3.9 mEq/L (3.5-4.5); Total Protein 6.9 g/dL (6.0-8.3)
[2016-09-19 10:49] LABS: Basophils % 0.4 %; Hematocrit 39.6 % (37.5-50.1); Hemoglobin 13.2 g/dL (12.9-16.9); Immature Granulocytes % 0.6 % (0-4); Lymphocytes # 1.2 K/mcL (0.6-4.6); Mean Corpuscular HGB Conc 33.3 g/dL (31.6-35.5); Mean Corpuscular Hemoglobin 31.4 pg (28.0-33.3); Mean Corpuscular Volume 94.1 fL (83.0-100.0); Mean Platelet Volume 10.7 fL (9.4-12.4); Monocytes # 0.6 K/mcL (0.0-1.3); Monocytes % 8.8 %; Neutrophils # 5.3 K/mcL (1.6-8.9); Platelet Count 326 K/mcL (140-400); Red Blood Count 4.21 M/mcL (4.19-5.50); Red Cell Distribution Width 12.8 % (11.5-14.5); Segmented Neutrophils % 74.2 %
[2016-09-19] MEDS ORDERED: 0.9 % Sodium Chloride 1,000 ML ONE (11:25)
[2016-09-19 14:20] LABS: Potassium 3.9 mEq/L (3.5-4.5)
[2016-09-19] MEDS: D5% in 0.45% NACL w KCl 10 MEQ/1,000 ML MLS IVC SCH (17:24)
[2016-09-20] MEDS: D5% in 0.45% NACL w KCl 10 MEQ/1,000 ML MLS IVC SCH (00:53)
[2016-09-20] MEDS ORDERED: 0.9 % Sodium Chloride 1,000 ML IVC SCH (02:15)
[2016-09-20] MEDS: *HR* Heparin 5,000 UNIT/ML VIAL SQ SCH ×2 (06:03→18:10)
--- NOTE | 2016-09-20 07:48 | Internal Med Progress Note ---
Date of Encounter: 09/20/16 Time of Encounter: 07:46 - Assessment and plan (1) HHNC (hyperglycemic hyperosmolar nonketotic coma) Current Visit: Yes Status: Resolved Assessment and plan: The patient was in the ICU He was refusing insulin during his entire hospitalization He denied being a diabetic although his glucose was more than 700 ( due to noncompliance), he is not able to understand his condition refused finger sticks Started metformin but had to be discontinued due to lactic acidosis (3.5) insulin drip was discontinued , now back on levermi 15 units BID and lispro 4 units TID plus sliding scale order STAT CBC, CMP and lactic acid (2) History of dementia Current Visit: Yes Status: Chronic Assessment and plan: Progressing, worse in combination with acute metabolic encephalopathy not able to make medical decisions , emergency guardianship process started (3) Altered mental status Current Visit: Yes Status: Acute Assessment and plan: High risk of falling, discontinue Sitter 1 on 1 increase haldol PO 2 mg from BID to QID Psychiatry recommended ativan and haldol prn Qualifiers: Altered mental status type: delirium Qualified Code(s): R41.0 - Disorientation, unspecified (4) COPD (chronic obstructive pulmonary disease) Current Visit: Yes Status: Chronic Assessment and plan: Not noted to be in acute exacerbation. Continue when necessary bronchodilators and supplemental oxygen. Qualifiers: COPD type: emphysema Emphysema type: centrilobular Qualified Code(s): J43.2 - Centrilobular emphysema (5) Renal insufficiency Current Visit: Yes Status: Acute Assessment and plan: Acute renal failure likely secondary to severe dehydration Creatinine was 2.72, now back to normal (6) CAD (coronary artery disease) Current Visit: Yes Status: Chronic Assessment and plan: Continue current medications. Qualifiers: Coronary Disease-Associated Artery/Lesion type: bypass graft [place] vs. transplanted heart: [place] heart Associated angina: without angina Qualified Code(s): I25.810 - Atherosclerosis of coronary artery bypass graft(s) without angina pectoris (7) Hypokalemia Current Visit: Yes Status: Resolved Assessment and plan: improved with supplements; (8) Delirium due to multiple etiologies Current Visit: Yes Status: Acute (9) Essential hypertension Current Visit: Yes Status: Chronic Assessment and plan: Blood pressure noted to be well-controlled. Continue metoprolol and KRIS inhibitor for now. (10) Hypernatremia Current Visit: Yes Status: Acute Assessment and plan: Admitted with severe dehydration and poor oral intake with serum sodium of 164 ( increased up to 166, now normal ). Nephrology was on board, currently signed off. Encourage oral fluid intake. switch to 1/2 NS at 100 cc /h - Subjective Interval history: Has a sitter but has been calm for the past hours. The patient is disoriented in time and place, apparently he is not able to comprehend what it has been explained to him. He kept repeating he was not a diabetic although his glucose was more than 700. Denies any chest pain, is not in distress, unable to complete review of systems due to confusion - Constitutional Vitals: Temp Pulse Resp BP Pulse Ox 97.6 F 75 16 131/81 93 09/20/16 07:09 09/20/16 07:09 09/20/16 07:09 09/20/16 07:09 09/20/16 07:09 General appearance: Present: A&O X 1 (oriented in person only ), disheveled, underweight. Absent: mild distress, answers questions appropriately - Head Head exam: Present: atraumatic, normocephalic - Eye Eye exam: Present: PERRL, conjuntiva pink, sclera anicteric Pupils: Present: PERRL - Neck Neck exam general surgery: Present: supple, trachea midline. Absent: lymphadenopathy - Respiratory Respiratory exam: Present: CTAB. Absent: accessory muscle use, rales, rhonchi, wheezes - Cardiovascular Cardiovascular exam: Present: RRR, +S1, +S2. Absent: diastolic murmur, gallop, rubs, systolic murmur - GI/Abdominal GI/Abdominal exam: Present: normal bowel sounds, soft, no peritoneal signs. Absent: distended, tenderness - Extremities Exam Extremities exam: Present: warm, radial pulses palpable and symetrical. Absent : calf tenderness, cyanotic, pedal edema - Neurological Exam Neurological exam: Present: CN II-XII intact, no focal deficits. Absent: oriented X3, pronater drift, facial droop, speech deficit - Skin Skin exam: Present: dry, intact Internal Medicine: Result - Labs CBC & Chem 7: 09/19/16 10:40 09/19/16 13:50 Labs: Short CBC 09/19/16 Range/Units 10:40 WBC 7.2 (4.3-11.1) K/mcL Hgb 13.2 (12.9-16.9) g/dL Hct 39.6 (37.5-50.1) % Plt Count 326 (140-400) K/mcL Neutrophils # 5.3 (1.6-8.9) K/mcL BMP 09/19/16 09/19/16 09:07 13:50 Sodium 147 H 150 H Potassium 3.9 3.9 Chloride 109 113 H Carbon Dioxide 25 24 BUN 43 H 46 H Creatinine 1.76 H 1.94 H Glucose 750 H* 468 H Calcium 10.1 10.0 Liver Function 09/19/16 Range/Units 09:07 Total Bilirubin 0.3 (0.2-1.2) mg/dL AST 21 (5-34) Units/L ALT 45 (0-55) Units/L Alkaline Phosphatase 87 (38-126) Units/L Albumin 2.6 L (3.5-5.0) g/dL - ABG Interpretation ABG results: ABG ABG pH 7.32 pH Units (7.32-7.45) 09/09/16 15:58 ABG pCO2 54 mmHg (35-45) H 09/09/16 15:58 ABG pO2 122 mmHg (85-104) H 09/09/16 15:58 ABG O2 Saturation 98 % (95-98) 09/09/16 15:58 PT/INR, D-dimer PT 12.1 Seconds (9.4-12.1) 09/10/16 03:46 - VTE Documentation of Mechanical Device: Graduated compression elastic hosiery Consult Discharge Plan - Plan Referrals: NO,PCP [Primary Care Provider] -
[2016-09-20 07:59] LABS: Hemoglobin 11.9 g/dL (12.9-16.9); Immature Platelets 4.2 % (1.1-6.1); Mean Corpuscular HGB Conc 32.2 g/dL (31.6-35.5); Mean Corpuscular Hemoglobin 30.7 pg (28.0-33.3); Mean Corpuscular Volume 95.6 fL (83.0-100.0); Mean Platelet Volume 10.7 fL (9.4-12.4); Red Blood Count 3.87 M/mcL (4.19-5.50); Red Cell Distribution Width 12.9 % (11.5-14.5)
[2016-09-20] MEDS: Insulin LISPRO 300 UNITS/3 ML VIAL SQ SCH ×7 (08:10→21:40)
[2016-09-20 08:19] LABS: BUN/Creatinine Ratio 32 (6-26); Blood Urea Nitrogen 40 mg/dL (8-26); Calcium 8.6 mg/dL (8.6-10.8); Carbon Dioxide 24 mEq/L (19-29); Chloride 110 mEq/L (98-109); Glucose 345 mg/dL (70-99); Osmolality,Calculated 319 (280-300); Sodium 143 mEq/L (136-145); eGFR For African Americans > 60 (> 60); eGFR For Non-African Americans 58 (> 60)
[2016-09-20] MEDS: Insulin DETEMIR 100 UNIT/ML X5UNITS SQ SCH ×2 (09:51→21:39)
[2016-09-21 05:36] LABS: BUN/Creatinine Ratio 32 (6-26); Calcium 8.1 mg/dL (8.6-10.8); Carbon Dioxide 25 mEq/L (19-29); Chloride 107 mEq/L (98-109); Glucose 112 mg/dL (70-99); Osmolality,Calculated 296 (280-300); Potassium 3.5 mEq/L (3.5-4.5); Sodium 140 mEq/L (136-145); eGFR For African Americans > 60 (> 60); eGFR For Non-African Americans > 60 (> 60)
[2016-09-21 05:37] LABS: Blood Urea Nitrogen 27 mg/dL (8-26)
[2016-09-21] MEDS: *HR* Heparin 5,000 UNIT/ML VIAL SQ SCH ×3 (05:49→18:00)
[2016-09-21] MEDS: Insulin LISPRO 300 UNITS/3 ML VIAL SQ SCH ×7 (07:55→20:42)
[2016-09-21] MEDS: Insulin DETEMIR 100 UNIT/ML X5UNITS SQ SCH ×2 (08:25→20:42)
--- NOTE | 2016-09-21 10:59 | Internal Med Progress Note ---
Date of Encounter: 09/21/16 Time of Encounter: 10:57 - Assessment and plan (1) HHNC (hyperglycemic hyperosmolar nonketotic coma) Current Visit: Yes Status: Resolved Assessment and plan: The patient was in the ICU He was refusing insulin during his entire hospitalization He denied being a diabetic although his glucose was more than 700 ( due to noncompliance), he is not able to understand his condition refused finger sticks Started metformin but had to be discontinued due to lactic acidosis (3.5) insulin drip was discontinued , now back on levermir 15 units BID and lispro 4 units TID plus sliding scale (2) History of dementia Current Visit: Yes Status: Chronic Assessment and plan: Progressing, worse in combination with acute metabolic encephalopathy not able to make medical decisions , emergency guardianship process performed ECF on Friday (3) Altered mental status Current Visit: Yes Status: Acute Assessment and plan: High risk of falling, discontinue Sitter 1 on 1 increased haldol PO 2 mg from BID to QID Psychiatry recommended ativan and haldol prn Qualifiers: Altered mental status type: delirium Qualified Code(s): R41.0 - Disorientation, unspecified (4) COPD (chronic obstructive pulmonary disease) Current Visit: Yes Status: Chronic Assessment and plan: Not noted to be in acute exacerbation. Continue when necessary bronchodilators and supplemental oxygen. Qualifiers: COPD type: emphysema Emphysema type: centrilobular Qualified Code(s): J43.2 - Centrilobular emphysema (5) Renal insufficiency Current Visit: Yes Status: Acute Assessment and plan: Acute renal failure likely secondary to severe dehydration Creatinine was 2.72, now back to normal (6) CAD (coronary artery disease) Current Visit: Yes Status: Chronic Assessment and plan: Continue current medications. Qualifiers: Coronary Disease-Associated Artery/Lesion type: bypass graft [place] vs. transplanted heart: [place] heart Associated angina: without angina Qualified Code(s): I25.810 - Atherosclerosis of coronary artery bypass graft(s) without angina pectoris (7) Hypokalemia Current Visit: Yes Status: Resolved Assessment and plan: improved with supplements; (8) Delirium due to multiple etiologies Current Visit: Yes Status: Acute (9) Essential hypertension Current Visit: Yes Status: Chronic Assessment and plan: Blood pressure noted to be well-controlled. Continue metoprolol and KRIS inhibitor for now. (10) Hypernatremia Current Visit: Yes Status: Acute Assessment and plan: Admitted with severe dehydration and poor oral intake with serum sodium of 164 ( increased up to 166, now normal ). Nephrology was on board, currently signed off. Encourage oral fluid intake. switch to 1/2 NS at 100 cc /h - Subjective Interval history: Disoriented in time and place, apparently he is not able to comprehend what it has been explained to him. He kept repeating he was not a diabetic although his glucose was more than 700. Denies any chest pain, is not in distress, unable to complete review of systems due to confusion. - Constitutional Vitals: Temp Pulse Resp BP Pulse Ox 98.1 F 74 16 116/74 95 09/21/16 07:20 09/21/16 07:20 09/21/16 07:20 09/21/16 07:20 09/21/16 07:20 General appearance: Present: A&O X 1 (oriented in person only ), disheveled, underweight. Absent: mild distress, answers questions appropriately - Head Head exam: Present: atraumatic, normocephalic - Eye Eye exam: Present: PERRL, conjuntiva pink, sclera anicteric Pupils: Present: PERRL - Neck Neck exam general surgery: Present: supple, trachea midline. Absent: lymphadenopathy - Respiratory Respiratory exam: Present: CTAB. Absent: accessory muscle use, rales, rhonchi, wheezes - Cardiovascular Cardiovascular exam: Present: RRR, +S1, +S2. Absent: diastolic murmur, gallop, rubs, systolic murmur - GI/Abdominal GI/Abdominal exam: Present: normal bowel sounds, soft, no peritoneal signs. Absent: distended, tenderness - Extremities Exam Extremities exam: Present: warm, radial pulses palpable and symetrical. Absent : calf tenderness, cyanotic, pedal edema - Neurological Exam Neurological exam: Present: CN II-XII intact, no focal deficits. Absent: oriented X3, pronater drift, facial droop, speech deficit - Skin Skin exam: Present: dry, intact Internal Medicine: Result - Labs CBC & Chem 7: 09/20/16 07:52 09/21/16 04:47 Labs: BMP 09/21/16 04:47 Sodium 140 Potassium 3.5 Chloride 107 Carbon Dioxide 25 BUN 27 H D Creatinine 0.84 Glucose 112 H Calcium 8.1 L - ABG Interpretation ABG results: ABG ABG pH 7.32 pH Units (7.32-7.45) 09/09/16 15:58 ABG pCO2 54 mmHg (35-45) H 09/09/16 15:58 ABG pO2 122 mmHg (85-104) H 09/09/16 15:58 ABG O2 Saturation 98 % (95-98) 09/09/16 15:58 PT/INR, D-dimer PT 12.1 Seconds (9.4-12.1) 09/10/16 03:46 - VTE Documentation of Mechanical Device: Graduated compression elastic hosiery Consult Discharge Plan - Plan Referrals: NO,PCP [Primary Care Provider] -
[2016-09-22] MEDS: *HR* Heparin 5,000 UNIT/ML VIAL SQ SCH ×2 (05:57→17:54)
[2016-09-22] MEDS: Insulin LISPRO 300 UNITS/3 ML VIAL SQ SCH ×7 (07:47→20:16)
[2016-09-22] MEDS: Insulin DETEMIR 100 UNIT/ML X5UNITS SQ SCH ×2 (08:59→20:21)
--- NOTE | 2016-09-22 14:05 | Internal Med Progress Note ---
Date of Encounter: 09/22/16 Time of Encounter: 14:03 - Assessment and plan (1) HHNC (hyperglycemic hyperosmolar nonketotic coma) Current Visit: Yes Status: Resolved Assessment and plan: The patient was in the ICU He was refusing insulin during his entire hospitalization He denied being a diabetic although his glucose was more than 700 ( due to noncompliance), he is not able to understand his condition refused finger sticks Started metformin but had to be discontinued due to lactic acidosis (3.5) insulin drip was discontinued , now back on levermir 15 units BID and lispro 4 units TID plus sliding scale (2) History of dementia Current Visit: Yes Status: Chronic Assessment and plan: Progressing, worse in combination with acute metabolic encephalopathy not able to make medical decisions , emergency guardianship process performed ECF on Friday (3) Altered mental status Current Visit: Yes Status: Acute Assessment and plan: High risk of falling, discontinue Sitter 1 on 1 increased haldol PO 2 mg from BID to QID Psychiatry recommended ativan and haldol prn Qualifiers: Altered mental status type: delirium Qualified Code(s): R41.0 - Disorientation, unspecified (4) COPD (chronic obstructive pulmonary disease) Current Visit: Yes Status: Chronic Assessment and plan: Not noted to be in acute exacerbation. Continue when necessary bronchodilators and supplemental oxygen. Qualifiers: COPD type: emphysema Emphysema type: centrilobular Qualified Code(s): J43.2 - Centrilobular emphysema (5) Renal insufficiency Current Visit: Yes Status: Acute Assessment and plan: Acute renal failure likely secondary to severe dehydration Creatinine was 2.72, now back to normal (6) CAD (coronary artery disease) Current Visit: Yes Status: Chronic Assessment and plan: Continue current medications. Qualifiers: Coronary Disease-Associated Artery/Lesion type: bypass graft [place] vs. transplanted heart: [place] heart Associated angina: without angina Qualified Code(s): I25.810 - Atherosclerosis of coronary artery bypass graft(s) without angina pectoris (7) Hypokalemia Current Visit: Yes Status: Resolved Assessment and plan: improved with supplements; (8) Delirium due to multiple etiologies Current Visit: Yes Status: Acute (9) Essential hypertension Current Visit: Yes Status: Chronic Assessment and plan: Blood pressure noted to be well-controlled. Continue metoprolol and KRIS inhibitor for now. (10) Hypernatremia Current Visit: Yes Status: Acute Assessment and plan: Admitted with severe dehydration and poor oral intake with serum sodium of 164 ( increased up to 166, now normal ). Nephrology was on board, currently signed off. Encourage oral fluid intake. switch to 1/2 NS at 100 cc /h - Subjective Interval history: He kept repeating he was not a diabetic although his glucose was more than 700. Denies any chest pain, is not in distress, unable to complete review of systems due to confusion. Disoriented in time and place, apparently he is not able to comprehend what it has been explained to him. - Constitutional Vitals: Temp Pulse Resp BP Pulse Ox 98.0 F 75 18 115/77 96 09/22/16 10:23 09/22/16 10:23 09/22/16 10:23 09/22/16 10:09/22/16 10:23 General appearance: Present: A&O X 1 (oriented in person only ), disheveled, underweight. Absent: mild distress, answers questions appropriately - Head Head exam: Present: atraumatic, normocephalic - Eye Eye exam: Present: PERRL, conjuntiva pink, sclera anicteric Pupils: Present: PERRL - Neck Neck exam general surgery: Present: supple, trachea midline. Absent: lymphadenopathy - Respiratory Respiratory exam: Present: CTAB. Absent: accessory muscle use, rales, rhonchi, wheezes - Cardiovascular Cardiovascular exam: Present: RRR, +S1, +S2. Absent: diastolic murmur, gallop, rubs, systolic murmur - GI/Abdominal GI/Abdominal exam: Present: normal bowel sounds, soft, no peritoneal signs. Absent: distended, tenderness - Extremities Exam Extremities exam: Present: warm, radial pulses palpable and symetrical. Absent : calf tenderness, cyanotic, pedal edema - Neurological Exam Neurological exam: Present: CN II-XII intact, no focal deficits. Absent: oriented X3, pronater drift, facial droop, speech deficit - Skin Skin exam: Present: dry, intact Internal Medicine: Result - Labs CBC & Chem 7: 09/20/16 07:52 09/21/16 04:47 - ABG Interpretation ABG results: ABG ABG pH 7.32 pH Units (7.32-7.45) 09/09/16 15:58 ABG pCO2 54 mmHg (35-45) H 09/09/16 15:58 ABG pO2 122 mmHg (85-104) H 09/09/16 15:58 ABG O2 Saturation 98 % (95-98) 09/09/16 15:58 PT/INR, D-dimer PT 12.1 Seconds (9.4-12.1) 09/10/16 03:46 - VTE Documentation of Mechanical Device: Graduated compression elastic hosiery Consult Discharge Plan - Plan Referrals: NO,PCP [Primary Care Provider] -
[2016-09-23] MEDS: *HR* Heparin 5,000 UNIT/ML VIAL SQ SCH (06:14)
[2016-09-23 07:54] VITALS: BP 118/66
[2016-09-23] MEDS: Insulin LISPRO 300 UNITS/3 ML VIAL SQ SCH ×2 (08:04→08:13)
[2016-09-23] MEDS: Insulin DETEMIR 100 UNIT/ML X5UNITS SQ SCH (08:10)
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
--- NOTE | 2016-09-23 09:21 | Physician Discharge Referral ---
ExtendedCare Referral Info Provider in Charge after Transfer: PCP Institutional Level of Care: Skilled - Diagnosis (1) HHNC (hyperglycemic hyperosmolar nonketotic coma) Status: Resolved (2) History of dementia Status: Chronic (3) Altered mental status Status: Acute (4) COPD (chronic obstructive pulmonary disease) Status: Chronic (5) Renal insufficiency Status: Acute (6) CAD (coronary artery disease) Status: Chronic (7) Hypokalemia Status: Resolved (8) Delirium due to multiple etiologies Status: Acute (9) Essential hypertension Status: Chronic (10) Hypernatremia Status: Acute - Transfer Medications Prescriptions: OxyCODONE Immed Rel [Roxicodone 5 MG] 10 mg PO Q6HR PRN #20 tablet PRN Reason: Moderate Pain (4-6) Haloperidol [Haldol] 2 mg PO BID #60 tablet Lisinopril [Zestril] 5 mg PO DAILY #30 tablet Metoprolol [Lopressor] 25 mg PO BID #30 tablet Home Medications: Haloperidol [Haldol] 2 mg PO BID #60 tablet 09/23/16 [Rx] Insulin DETEMIR [Levemir] 15 unit SQ BID #0 [id number] 09/23/16 [Rx] Insulin LISPRO [HumaLOG] 0 units SQ HS vial 09/23/16 [Rx] Insulin LISPRO [HumaLOG] 0 units SQ TIDAC vial 09/23/16 [Rx] Insulin LISPRO [HumaLOG] 4 units SQ TIDWM vial 09/23/16 [Rx] Lisinopril [Zestril] 5 mg PO DAILY #30 tablet 09/23/16 [Rx] Metoprolol [Lopressor] 25 mg PO BID #30 tablet 09/23/16 [Rx] Omeprazole [PriLOSEC] 40 mg PO DAILY@0630 capsule. 09/23/16 [Rx] OxyCODONE Immed Rel [Roxicodone 5 MG] 10 mg PO Q6HR PRN #20 tablet 09/23/16 [Rx] Allergies/Adverse Reactions: Allergies No Known Allergies Allergy (Verified 09/09/16 13:56) - Respiratory Orders Smoking Cessation: Smoking cessation has been advised. For more information, call the [place] Tobacco Quit Line at 6-088-YLAO-NOW. - Advance Directives Code Status: Full Code - Treatments List/Other: Follow with primary care physician within the next 2 weeks. Continue Haldol. Needs to follow-up with psychiatry within the next 2 weeks. - Diet Orders No Added Salt (SHRUTI) (Diabetic diet) CERTIFICATION: I certify that the transfer of the above named patient to an Extended Care Facility is necessary for the continuing treatment of the diagnosis listed. The above information is true and accurate reflection of patient's current condition. Confidential - Redisclosure prohibited without a patient's written consent.
== END 2016-09-23 11:10 | DRG 682 ==
LOC: EMEROO 13:50 → ICNU 20:18 → SUATTDRO 20:18 → ICNU 20:19 → 3ANU 09-11 17:37
PROVIDERS: ADMIT Hospitalist; ATTEND Internal Medicine